=== PATIENT | female | born 1955 | race Caucasian/White ===

== ENCOUNTER 2020-10-14 09:00 | Emergency (ER) | payer BC, SELFPAY ==
[2020-10-14 09:17] VITALS: BP 122/77; PULSE 102; RESP 14; TEMP 37; O2SAT 98
--- NOTE | 2020-10-14 09:47 | ED.URI ---
HPI - URI/Sore Throat General Chief Complaint: Upper Respiratory Infection Stated Complaint: sore throat/cough/headache Source: patient Mode of arrival: ambulatory Limitations: no limitations History of Present Illness HPI Narrative: Patient is a 65-year-old female who presents complaining of cough, congestion, sore throat, headache and rhinorrhea times x5 days. Patient reports being seen in the ED for headache on Tuesday and was not tested for Covid. Patient had positive exposure to grandchild who is Covid positive. She denies chest pain or shortness of breath at this time. Actively coughing. She reports taking [id number] medications with limited relief. MD elicited complaint: cough, sore throat, rhinorrhea, nasal congestion and other (Headache) Related Data Home Medications Medication Instructions Recorded Confirmed amitriptyline 25 mg PO HS 10/14/20 10/14/20 buspirone 7.5 mg PO BID 10/14/20 10/14/20 celecoxib [Celebrex] 200 mg PO BID 10/14/20 10/14/20 cyclobenzaprine 10 mg PO HS 10/14/20 10/14/20 fluoxetine 40 mg PO DAILY 10/14/20 10/14/20 meclizine 25 mg PO TID 10/14/20 10/14/20 metoprolol succinate 25 mg PO DAILY 10/14/20 10/14/20 pantoprazole 40 mg PO DAILY 10/14/20 10/14/20 Allergies Allergy/AdvReac Type Severity Reaction Status Date / Time Sulfa (Sulfonamide Allergy Unknown Rash Verified 10/14/20 09:25 Antibiotics) codeine AdvReac Unknown Nausea Verified 10/14/20 09:25 gabapentin AdvReac Unknown Unknown Verified 10/14/20 09:25 Review of Systems Review of Systems: Narrative: CONSTITUTIONAL: Denies fever, chills, or sweats. EYES: Denies visual changes, redness, or discharge. ENT: Reports rhinorrhea, congestion, and sore throat CARDIOVASCULAR: Denies chest pain, palpitations, or edema. RESPIRATORY: Reports cough, denies dyspnea. GASTROINTESTINAL: Reports nausea and vomiting which has since resolved GENITOURINARY: Denies dysuria or hematuria. SKIN: Denies rash or itching. MUSCULOSKELETAL: Denies back pain, joint pain, or myalgia. NEUROLOGIC: Reports headache, denies numbness, dizziness, or weakness. PSYCHIATRIC: Denies anxiety or depression. [facility] Past Medical History Medical History Anxiety Arthritis Depression Fibromyalgia Fusion of spine, cervical region Migraines Plantar fasciitis Postmenopausal Surgical History Surgical History History of lumbar fusion Social History Social History (Updated 10/14/20 @ 09:53 by LILIAN Mckenzie) Smoking status: Never smoker Alcohol intake: never Substance use: never Living arrangements: with family Exam Narrative: Exam Narrative: GENERAL: Well-appearing, well-nourished, and in no acute distress. HEAD: Normocephalic, atraumatic. EYES Conjunctiva are normal. ENT: Mucous membranes pink and moist. Throat mild erythema Uvula midline. NECK: AROM. Supple. No lymphadenopathy. CHEST: No respiratory distress. HEART: Regular rate and rhythm. EXTREMITIES: Normal range of motion. SKIN: Warm, dry, no rash. NEURO: No focal deficits. Alert and oriented x3. Gait steady. PSYCH: Normal affect. No signs of depression or anxiety. Course Vital Signs Vital signs: Vital Signs Temperature 37.0 C 10/14/20 09:17 Pulse Rate 102 H 10/14/20 09:17 Respiratory Rate 14 10/14/20 09:17 Blood Pressure 122/77 10/14/20 09:17 Pulse Oximetry 98 10/14/20 09:17 Temperature 37.0 C 10/14/20 09:17 Pulse Rate 102 H 10/14/20 09:17 Respiratory Rate 14 10/14/20 09:17 Blood Pressure 122/77 10/14/20 09:17 Pulse Oximetry 98 10/14/20 09:17 Reviewed MDM - URI/Sore Throat MDM Narrative Medical decision making narrative: Patient is negative for strep throat and influenza. Discussed with patient Covid testing. Patient request Covid testing at this time. Discussed quarantine. Patient is stable for discharge to home with
[2020-10-14 09:50] VITALS: BP 126/82; PULSE 115; RESP 16; TEMP 36.8; O2SAT 100
== END 2020-10-14 10:08 | disposition home or self-care (01) ==
PROVIDERS: Emergency Provider Nurse Practitioner; PCP Family Medicine
DX: J06.9 Acute upper respiratory infection, unspecified (principal); Z20.828 Contact with and (suspected) exposure to other viral communicable diseases; M19.90 Unspecified osteoarthritis, unspecified site; M79.7 Fibromyalgia; F41.9 Anxiety disorder, unspecified; F32.9 Major depressive disorder, single episode, unspecified
CPT/HCPCS: 87081; 87804; 87880; 99213; G0463

== ENCOUNTER 2021-02-21 13:48 | Emergency (ER) | payer BC, MEDICARE, SELFPAY ==
[2021-02-21 14:24] VITALS: BP 113/86; PULSE 85; RESP 18; TEMP 36.2; O2SAT 96
--- NOTE | 2021-02-21 14:49 | ED.GENADULT ---
HPI - General Adult General Chief complaint: Urogenital-Female Stated complaint: bladder infection Time Seen by Provider: 02/21/21 14:49 Source: patient and RN notes reviewed Mode of arrival: ambulatory Limitations: no limitations History of Present Illness HPI narrative: 65-year-old female presents with urinary complaints for 1 day. Emmy reports increase urine symptoms throughout the night and day. Dysuria consist of warm, painful, and urgency. Increase water intake without relief. Denies frequency and burning with urination. Denies high fevers or sweats. No significant pelvic pain. No vaginal discharge.? No concerns for STDs. Exacerbating factors urinating.? Denies hematuria or vaginal bleeding. LMP postmenopause. No flank pain. Denies nausea, vomiting, and abdominal pain. Tolerating liquids. Remains active. The patient reports she was diagnosed with COVID-19 in September,, no current symptoms. The patient reports she is not waiting for the results of a COVID-19 lab test. The patient reports she do not have chills, weakness, or fatigue. The patient reports she do not have a new or worsening cough or shortness of breath. Denies chest pain. The patient reports she do not have any rhinorrhea, congestion, sore throat, loss of taste or smell, or diarrhea. Denies recent traveling. Denies concerns for COVID-19 or exposures been home with limited outdoor exposure except for essential household needs and return home. At this time, patient is not suspected of having COVID-19. Some parts of this dictation were generated by voice recognition software and may contain typographical and/or grammatical inaccuracies. Related Data Home Medications Medication Instructions Recorded Confirmed BuSpar 02/21/21 Stool Softner 02/21/21 amitriptyline 25 mg PO HS 02/21/21 02/21/21 celecoxib [Celebrex] 200 mg PO BID 02/21/21 02/21/21 meclizine 25 mg PO BID PRN 02/21/21 02/21/21 metoprolol tartrate 02/21/21 Allergies Allergy/AdvReac Type Severity Reaction Status Date / Time Sulfa (Sulfonamide Allergy Swelling Verified 02/21/21 14:25 Antibiotics) Review of Systems Review of Systems: Narrative: CONSTITUTIONAL: Denies fever, chills, sweats. EYES: Denies visual changes, redness, discharge. ENT: Denies rhinorrhea, congestion, sore throat, otalgia. CARDIOVASCULAR: Denies chest pain, palpitations, edema. RESPIRATORY: Denies dyspnea, wheezing, cough. GASTROINTESTINAL: Denies abdominal pain, nausea, vomiting, diarrhea. GENITOURINARY: Complains of dysuria (warm, painful, and urgency). Denies burning, frequency, hematuria, abnormal discharge. SKIN: Denies rash or itching. MUSCULOSKELETAL: Denies acute back pain, joint pain, or myalgia. NEUROLOGIC: Denies numbness or focal weakness. PSYCHIATRIC: Denies anxiety or depression. All systems reviewed & are unremarkable except as noted in HPI and below. COUNT INCLUDES [facility] Past Medical History Medical History (Updated 02/22/21 @ 00:00 by Georgette Mcnulty) Anxiety Back pain with history of spinal surgery Plantar fasciitis Post-menopause Rheumatoid arthritis Surgical History Surgical History (Updated 02/21/21 @ 15:05 by LILIAN Cedillo) History of cervical spinal surgery X6 History of foot surgery bilateral 2 times on each foot for plantar fasciitis History of spinal surgery X5 Family History Family History (Updated 02/21/21 @ 15:05 by LILIAN Cedillo) Father Unknown family medical history Mother Hypertension Social History Social History (Updated 02/28/21 @ 01:41 by LILIAN Cedillo) Smoking status: Never smoker Tobacco type: cigarettes Second hand tobacco smoke exposure: Yes (spouse) Alcohol intake: current Substance use: never Living arrangements: with family Occupation/Education: retired Gender identity (if verbalized by the patient): Female Sexual Orientation (if Verbalized by the Patient): Straight or Heterosexual
== END 2021-02-21 15:18 | disposition home or self-care (01) ==
PROVIDERS: Emergency Provider Nurse Practitioner Family; PCP Family Medicine
DX: R30.0 Dysuria (principal); R31.9 Hematuria, unspecified; F41.9 Anxiety disorder, unspecified; M06.9 Rheumatoid arthritis, unspecified
CPT/HCPCS: 81003; 87077; 87086; 87088; 87186; 99213; G0463

== ENCOUNTER 2021-11-24 12:18 | Emergency (ER) | payer MEDICARE, SELFPAY ==
[2021-11-24 12:24] VITALS: BP 125/68; PULSE 106; RESP 20; TEMP 36.6; O2SAT 97
--- NOTE | 2021-11-24 13:30 | ED.URI ---
HPI - URI/Sore Throat General Chief Complaint: Upper Respiratory Infection Stated Complaint: Body Aches/Cough/Sore Throat Time Seen by Provider: 11/24/21 13:20 Source: patient, RN notes reviewed and old records reviewed Mode of arrival: ambulatory Limitations: no limitations History of Present Illness HPI Narrative: 66 year old female who resents to express care with complaints of nasal drainage with congestion, sore throat and headache pain in frontal region with chills for the past 2 days. Patient states that she has been taking Zicam and Ibuprofen for her symptoms. Patient reports that she did have COVID in September of 2020 has not had COVID or flu vaccinations. Patient reports no body aches, loss of taste or smell or any feelings of chest tightness or shortness of breath. MD elicited complaint: cough, sore throat, rhinorrhea, nasal congestion and other (headache) Related Data Home Medications Medication Instructions Recorded Confirmed buspirone 7.5 mg PO BID 10/14/20 11/24/21 celecoxib [Celebrex] 200 mg PO BID 02/21/21 11/24/21 cyclobenzaprine 10 mg PO TID PRN 11/24/21 11/24/21 Allergies Allergy/AdvReac Type Severity Reaction Status Date / Time Sulfa (Sulfonamide Allergy Unknown Rash Verified 11/24/21 12:38 Antibiotics) codeine AdvReac Unknown Nausea Verified 11/24/21 12:38 gabapentin AdvReac Unknown Unknown Verified 11/24/21 12:38 Review of Systems Review of Systems: CONSTITUTIONAL: No known fever, positive for chills, or sweats. EYES: Denies visual changes, redness, or discharge. ENT: positive for rhinorrhea, congestion, sore throat, no otalgia. CARDIOVASCULAR: Denies chest pain, palpitations, or edema. RESPIRATORY: Positive for cough denies dyspnea. GASTROINTESTINAL: Denies abdominal pain, nausea, vomiting, or diarrhea. GENITOURINARY: Denies dysuria or hematuria. SKIN: Denies rash or itching. MUSCULOSKELETAL: Chronic back and neck pain, joint pain,no body aches NEUROLOGIC: Positive for frontal headache,no numbness, or weakness. PSYCHIATRIC: Positive for history of anxiety or depression. All systems reviewed & are unremarkable except as noted in HPI and below PMFSH Past Medical History Medical History Anxiety Anxiety Arthritis Back pain with history of spinal surgery Depression Fibromyalgia Fusion of spine, cervical region Migraines Plantar fasciitis Plantar fasciitis Post-menopause Postmenopausal Rheumatoid arthritis Surgical History Surgical History History of cervical spinal surgery X6 History of foot surgery bilateral 2 times on each foot for plantar fasciitis History of lumbar fusion History of spinal surgery X5 Family History Family History Father Unknown family medical history Mother Hypertension Social History Social History Smoking status: Never smoker Tobacco type: cigarettes Second hand tobacco smoke exposure: Yes (spouse) Alcohol intake: current Substance use: never Gender identity (if verbalized by the patient): Female Sexual Orientation (if Verbalized by the Patient): Straight or Heterosexual Comments At time of signature, agree with nursing past medical, surgical, social and family history. There is no relevant family history pertinent to the presenting complaint Exam Narrative: GENERAL: Well-appearing, well-nourished, and in no acute distress. HEAD: Normocephalic, atraumatic. EYES: PERRLA and EOMI. ENT: Nares red with clear rhinorrhea no epistaxis. Mucous membranes moist.TM's normal with dull light reflex, throat red and painful with no lesions or tonsil enlargement,post nasal drainage present. NECK: Supple.no lymphadenopathy CHEST: Clear to auscultation. No respiratory distress.no tachypnea or accessory muscle use, SAO2 97% on room air
== END 2021-11-24 14:10 | disposition home or self-care (01) ==
PROVIDERS: Emergency Provider Registered Nurse; PCP Family Medicine
DX: J06.9 Acute upper respiratory infection, unspecified (principal); M79.7 Fibromyalgia; M06.9 Rheumatoid arthritis, unspecified; M19.90 Unspecified osteoarthritis, unspecified site; F41.9 Anxiety disorder, unspecified; F32.A Depression, unspecified
CPT/HCPCS: 87081; 87804; 87880; 99213; G0463

== ENCOUNTER 2024-03-06 12:44 | Emergency (ER) | payer MEDICARE, SELFPAY ==
[2024-03-06 13:01] VITALS: BP 129/81; PULSE 86; RESP 18; TEMP 36.2; O2SAT 96
[2024-03-06 13:02] VITALS: BP 129/81; PULSE 86; RESP 18; TEMP 36.2; O2SAT 96
--- NOTE | 2024-03-06 14:36 | ED.GENADULT ---
HPI - General Adult General Chief complaint: Urogenital-Female Stated complaint: Poss UTI Source: patient Mode of arrival: ambulatory Limitations: no limitations History of Present Illness HPI narrative: Pt presents for evaluation of urinary symptoms for the past six days. Symptoms include urinary urgency, frequency, hesitancy, vaginal pressure and hematuria. No fever, chills, nausea, vomiting, abdominal pain, low back/flank pain, or vaginal bleeding/discharge. She has never had a kidney stone. She takes celebrex regularly. Related Data Home Medications Medication Instructions Recorded Confirmed celecoxib 200 mg capsule (Celebrex) 200 mg PO BID 02/21/21 03/06/24 cyclobenzaprine 10 mg tablet 10 mg PO TID PRN Muscle Spasm 11/24/21 03/06/24 amitriptyline 25 mg tablet 25 mg PO QHS 03/06/24 03/06/24 metoprolol succinate 25 mg 25 mg PO DAILY 03/06/24 03/06/24 tablet,extended release 24 hr pantoprazole 40 mg tablet,delayed 40 mg PO DAILY 03/06/24 03/06/24 release Allergies Allergy/AdvReac Type Severity Reaction Status Date / Time Sulfa (Sulfonamide Allergy Unknown Rash Verified 03/06/24 13:02 Antibiotics) codeine AdvReac Unknown Nausea Verified 03/06/24 13:02 gabapentin AdvReac Unknown Unknown Verified 03/06/24 13:02 Review of Systems Review of Systems: CONSTITUTIONAL: Denies fever, chills, or sweats. EYES: Denies visual changes, redness, or discharge. ENT: Denies rhinorrhea, congestion, sore throat, or otalgia. CARDIOVASCULAR: Denies chest pain, palpitations, or edema. RESPIRATORY: Denies cough or dyspnea. GASTROINTESTINAL: Denies abdominal pain, nausea, vomiting, or diarrhea. GENITOURINARY: Reports urinary frequency, urgency, hesitancy, pressure in vaginal area and hematuria. Denies dysuria and vaginal bleeding/discharge. SKIN: Denies rash or itching. MUSCULOSKELETAL: Denies back pain, joint pain, or myalgia. NEUROLOGIC: Denies headache, numbness, dizziness, or weakness. PSYCHIATRIC: Denies anxiety or depression. [facility] Past Medical History Medical History Anxiety Anxiety Arthritis Back pain with history of spinal surgery Depression Fibromyalgia Fusion of spine, cervical region Migraines Plantar fasciitis Plantar fasciitis Post-menopause Postmenopausal Rheumatoid arthritis Surgical History Surgical History History of cervical spinal surgery X6 History of foot surgery bilateral 2 times on each foot for plantar fasciitis History of lumbar fusion History of spinal surgery X5 Family History Family History Father Unknown family medical history Mother Hypertension Social History Social History Smoking status: Never smoker Tobacco type: cigarettes Second hand tobacco smoke exposure: Yes (spouse) Alcohol intake: current Substance use: never Living arrangements: with family Occupation/Education: retired Gender identity (if verbalized by the patient): Female Sexual Orientation (if Verbalized by the Patient): Straight or Heterosexual Course Course Emergency Course: This is a 68-year-old female who presented for evaluation of urinary symptoms. She has no flank pain or abdominal pain to suggest kidney stone however pressure in vaginal area may be consistent with stone. She has 1+leukocytes in urine today. Will send urine for culture. Start keflex. Advised she switch from celebrex to topical diclofenac for now due to hematuria. She should increase hydration. Follow up with primary provider. In the event that she has worsening symptoms she should go to the emergency department. Patient in agreement with plan care. Level of Care: Express Care Visit Vital Signs Vital signs: Vital Signs Temperature 36.2 C L 03/06/24 13:01 Pulse Rate 86
== END 2024-03-06 13:45 | disposition home or self-care (01) ==
PROVIDERS: Emergency Provider Nurse Practitioner; PCP Physician Assistant
DX: N39.0 Urinary tract infection, site not specified (principal); M06.9 Rheumatoid arthritis, unspecified; F32.A Depression, unspecified
CPT/HCPCS: 81003; 87086; 99213; G0463

== ENCOUNTER 2024-06-27 08:27 | Emergency (ER) | payer MEDICARE, SELFPAY ==
[2024-06-27 08:32] VITALS: BP 131/78; PULSE 78; RESP 16; TEMP 36.6; O2SAT 97
--- NOTE | 2024-06-27 08:38 | ED.URI ---
HPI - URI/Sore Throat General Chief Complaint: Upper Respiratory Infection Stated Complaint: throat/ears/drainage/cough Time Seen by Provider: 06/27/24 08:39 Source: patient and RN notes reviewed Mode of arrival: ambulatory Limitations: no limitations History of Present Illness HPI Narrative: 69-year-old female presented for complaint of sinus congestion and postnasal drainage, cough, ear pressure a over the past 2 weeks. States that the onset she decreased taste and smell and may have had COVID but she did not test. She took 1 dose of a decongestant yesterday without improvement so she was wanting evaluation today. She denies shortness of breath, wheezing,vomiting, diarrhea, fevers or chills. MD elicited complaint: cough Related Data Home Medications Medication Instructions Recorded Confirmed celecoxib 200 mg capsule (Celebrex) 200 mg PO BID 02/21/21 03/06/24 cyclobenzaprine 10 mg tablet 10 mg PO TID PRN Muscle Spasm 11/24/21 03/06/24 amitriptyline 25 mg tablet 25 mg PO QHS 03/06/24 03/06/24 metoprolol succinate 25 mg 25 mg PO DAILY 03/06/24 03/06/24 tablet,extended release 24 hr pantoprazole 40 mg tablet,delayed 40 mg PO DAILY 03/06/24 03/06/24 release Allergies Allergy/AdvReac Type Severity Reaction Status Date / Time Sulfa (Sulfonamide Allergy Unknown Rash Verified 03/06/24 13:02 Antibiotics) codeine AdvReac Unknown Nausea Verified 03/06/24 13:02 gabapentin AdvReac Unknown Unknown Verified 03/06/24 13:02 Review of Systems Review of Systems: CONSTITUTIONAL: denies malaise, chills, sweats, fever EYES: Denies visual changes, redness, or discharge ENT: Reports rhinorrhea, congestion, sinus pain, otalgia, sore throat CARDIOVASCULAR: Denies chest pain, palpitations, edema RESPIRATORY: Reports cough, post nasal drainage. Denies dyspnea GASTROINTESTINAL: Denies abdominal pain, nausea, vomiting, diarrhea SKIN: Denies rash or itching MUSCULOSKELETAL: denies myalgia NEUROLOGIC: Denies headache PMFSH Past Medical History Medical History Anxiety Anxiety Arthritis Back pain with history of spinal surgery Depression Fibromyalgia Fusion of spine, cervical region Migraines Plantar fasciitis Plantar fasciitis Post-menopause Postmenopausal Rheumatoid arthritis Surgical History Surgical History History of cervical spinal surgery X6 History of foot surgery bilateral 2 times on each foot for plantar fasciitis History of lumbar fusion History of spinal surgery X5 Family History Family History Father Unknown family medical history Mother Hypertension Social History Social History Smoking status: Never smoker Tobacco type: cigarettes Second hand tobacco smoke exposure: Yes (spouse) Alcohol intake: current Substance use: never Living arrangements: with family Occupation/Education: retired Gender identity (if verbalized by the patient): Female Sexual Orientation (if Verbalized by the Patient): Straight or Heterosexual Exam Narrative: GENERAL: mildly Ill-appearing, nontoxic no acute distress. EYES: PERRLA, conjunctivae clear ENT: Mucous membranes moist. nasal congestion. TM pearly ford with dull light reflex bilaterally , mild left clear effusion; no tragal tenderness. Oropharynx erythematous without lesions or exudate, no drooling, no hoarseness, no trismus, uvula midline. No tripod positioning, muffled voice, soft palate or pharyngeal wall bulging NECK: Supple. No lymphadenopathy CHEST: Clear to auscultation, breath sounds equal. No wheezing, rhonchi, rales, or stridor. No respiratory distress, speaks in full sentences. HEART: Regular rate and rhythm. No murmur heard. SKIN: Warm, dry, no rash. NEURO: Alert and oriented x3. PSYCH: Normal mood and affec
== END 2024-06-27 08:58 | disposition home or self-care (01) ==
PROVIDERS: Emergency Provider Nurse Practitioner Family; PCP Physician Assistant
DX: J32.9 Chronic sinusitis, unspecified (principal); M19.90 Unspecified osteoarthritis, unspecified site; M06.9 Rheumatoid arthritis, unspecified; F32.A Depression, unspecified
CPT/HCPCS: 99213; G0463

== ENCOUNTER 2024-07-31 10:30 | Emergency (ER) | payer MEDICARE, SELFPAY ==
[2024-07-31 10:42] VITALS: BP 129/78; PULSE 71; RESP 20; TEMP 37.1; O2SAT 98
--- NOTE | 2024-07-31 11:25 | ED.SKABFB ---
HPI - Skin/Abscess/Foreign Bdy General Chief complaint: Skin/Abscess/Foreign Body Stated complaint: rash under breasts Time Seen by Provider: 07/31/24 11:25 Source: patient, RN notes reviewed and old records reviewed Mode of arrival: ambulatory Limitations: no limitations History of Present Illness HPI narrative: 69-year-old female presents to the [facility] with a rash under her breasts. Patient recently on antibiotics. Had tried using Desitin and Vagisil Excoriated skin Onset (ago): week(s) (2-3 weeks) Treatments prior to arrival: other (Desitin) Related Data Home Medications Medication Instructions Recorded Confirmed amitriptyline 25 mg tablet 25 mg PO QHS 03/06/24 07/31/24 metoprolol succinate 25 mg 25 mg PO DAILY 03/06/24 07/31/24 tablet,extended release 24 hr pantoprazole 40 mg tablet,delayed 40 mg PO DAILY 03/06/24 07/31/24 release Allergies Allergy/AdvReac Type Severity Reaction Status Date / Time Sulfa (Sulfonamide Allergy Unknown Rash Verified 07/31/24 10:46 Antibiotics) codeine AdvReac Unknown Nausea Verified 07/31/24 10:46 gabapentin AdvReac Unknown Unknown Verified 07/31/24 10:46 Review of Systems Review of Systems: All systems reviewed & are unremarkable except as noted in HPI and below Constitutional: Constitutional: Reports no additional constitutional complaints Eyes: Eyes: Reports no additional eye complaints ENT: Reports system reviewed and no additional complaints, except as documented Cardiovascular: Cardiovascular: Reports no additional cardiovascular complaints, Denies chest pain and Denies dyspnea Respiratory: Respiratory: Reports no additional respiratory complaints, Denies chest congestion, Denies cough and Denies dyspnea Gastrointestinal: Gastrointestinal: Reports no additional gastrointestinal complaints, Denies abdominal pain, Denies nausea and Denies vomiting Musculoskeletal: Musculoskeletal: Reports no additional musculoskeletal complaints Integumentary/Breasts: Skin/Breast: Reports as per HPI and Reports rash (Under bilateral breasts) Neurologic: Reports system reviewed and no additional complaints, except as documented Psychiatric: Psychiatric: Reports no additional psychiatric complaints Allergic/Immunologic: Allergic/Immunologic: Reports no additional allergic/immunologic complaints PMFSH Past Medical History Medical History Anxiety Anxiety Arthritis Back pain with history of spinal surgery Depression Fibromyalgia Fusion of spine, cervical region Migraines Plantar fasciitis Plantar fasciitis Post-menopause Postmenopausal Rheumatoid arthritis Surgical History Surgical History History of cervical spinal surgery X6 History of foot surgery bilateral 2 times on each foot for plantar fasciitis History of lumbar fusion History of spinal surgery X5 Family History Family History Father Unknown family medical history Mother Hypertension Social History Social History Smoking status: Never smoker Tobacco type: cigarettes Second hand tobacco smoke exposure: Yes (spouse) Alcohol intake: current Substance use: never Living arrangements: with family Occupation/Education: retired Gender identity (if verbalized by the patient): Female Sexual Orientation (if Verbalized by the Patient): Straight or Heterosexual Comments At the time of my signature, I reviewed and agree with the nursing past medical, surgical, social, and family history. There is no relevant family history pertinent to the patient complaint. Exam Const: General: cooperative, healthy appearing, comfortable, no acute distress, well developed, alert and well nourished Nutritional Appearance: well nourished Orientation/consciousness: patient oriented x3
== END 2024-07-31 11:35 | disposition home or self-care (01) ==
PROVIDERS: Emergency Provider Nurse Practitioner; PCP Physician Assistant
DX: B37.2 Candidiasis of skin and nail (principal); M79.7 Fibromyalgia; M06.9 Rheumatoid arthritis, unspecified; M19.90 Unspecified osteoarthritis, unspecified site
CPT/HCPCS: 99213; G0463

== ENCOUNTER 2024-09-28 16:23 | Emergency (ER) | payer MEDICARE, SELFPAY ==
[2024-09-28 16:32] VITALS: BP 121/94; PULSE 96; RESP 20; TEMP 36.6; O2SAT 97
--- NOTE | 2024-09-28 16:41 | ED.FEMALEGU ---
HPI - Female Genitourinary General Chief complaint: Urogenital-Female Stated complaint: Urinary Problem Time Seen by Provider: 09/28/24 16:41 Source: patient and RN notes reviewed Mode of arrival: ambulatory Limitations: no limitations History of Present Illness HPI Narrative: 69-year-old female with concern for urine frequency, urgency, dysuria. She reports she urinates very small amounts frequently. Reports his symptoms have been going for many months. She reports she was treated with antibiotic in February that helped briefly. She reports suprapubic pressure and some incontinence. She denies fever, body aches, chills MD elicited complaint: UTI Related Data Home Medications Medication Instructions Recorded Confirmed amitriptyline 25 mg tablet 25 mg PO QHS 03/06/24 09/28/24 buspirone 15 mg tablet 15 mg PO TID 09/28/24 09/28/24 celecoxib 200 mg capsule 200 mg PO BID 09/28/24 09/28/24 cyclobenzaprine 10 mg tablet 10 mg PO QHS 09/28/24 09/28/24 Allergies Allergy/AdvReac Type Severity Reaction Status Date / Time Sulfa (Sulfonamide Allergy Unknown Rash Verified 09/28/24 16:47 Antibiotics) codeine AdvReac Unknown Nausea Verified 09/28/24 16:47 gabapentin AdvReac Unknown Unknown Verified 09/28/24 16:47 Review of Systems Review of Systems: CONSTITUTIONAL: Denies malaise, chills, sweats, or fever. CARDIOVASCULAR: Denies chest pain, palpitations, or edema. RESPIRATORY: Denies cough or dyspnea. GASTROINTESTINAL: Denies abdominal pain, nausea, vomiting, diarrhea GENITOURINARY: Reports dysuria, frequency, urgency, suprapubic pressure. Denies flank pain or hematuria. SKIN: Denies rash or itching. MUSCULOSKELETAL: Denies back pain or myalgia. All systems reviewed & are unremarkable except as noted in HPI and below PMFSH Past Medical History Medical History Anxiety Anxiety Arthritis Back pain with history of spinal surgery Depression Fibromyalgia Fusion of spine, cervical region Migraines Plantar fasciitis Plantar fasciitis Post-menopause Postmenopausal Rheumatoid arthritis Surgical History Surgical History History of cervical spinal surgery X6 History of foot surgery bilateral 2 times on each foot for plantar fasciitis History of lumbar fusion History of spinal surgery X5 Family History Family History Father Unknown family medical history Mother Hypertension Social History Social History Smoking status: Never smoker Tobacco type: cigarettes Second hand tobacco smoke exposure: Yes (spouse) Alcohol intake: current Substance use: never Living arrangements: with family Occupation/Education: retired Gender identity (if verbalized by the patient): Female Sexual Orientation (if Verbalized by the Patient): Straight or Heterosexual Comments At time of signature, agree with nursing past medical, surgical, social and family history. There is no relevant family history pertinent to the presenting complaint Exam Narrative: GENERAL: Well-appearing, well-nourished, and in no acute distress. HEAD: Normocephalic. EYES: PERRLA, conjunctivae clear. NECK: Supple. No lymphadenopathy CHEST: Clear to auscultation. No respiratory distress. HEART: Regular rate and rhythm. SKIN: Warm, dry, no rash. NEURO: Alert and oriented x3. PSYCH: Normal mood and affect Course Course Emergency Course: Patient is aware of diagnosis, understands and agrees to treatment plan. Anticipatory guidance given. Patient agrees to follow-up as directed and is aware of reasons to seek care at the emergency department. Portions of this record may have been created with voice recognition software Level of Care: Express Care Visit Vital Signs Vital signs: Vital Signs Temperature 97.9 F 09/28/24 16:32 Pulse Rate 96 09/28/24 16:32 Respiratory Rate 20 09/28/24 16:32 Blood Pressure 121/94 H 09/28/24 16:32 Pulse Oximetry 97 09/28/24 16:32 Oxygen Delivery Room Air 09/28/24 16:32 Temperature 97.9 F 09/28/24 16:32 Pulse Rate 96 09/28/24 16:32 Respiratory Rate 20 09/28/24 16:32 Blood Pressure 121/94 H 09/28/24 16:32 Pulse Oximetry 97 09/28/24 16:32 Oxygen Delivery Room Air 09/28/24 16:32 Reviewed. MDM - Female Genitourinary MDM Narrative Medical decision making narrative: Exam findings and UA show no acute concerns or changes; patient is non-toxic appearing and is in no distress. Patient is appropriate for outpatient treatment and follow-up. Differential Diagnosis Differential diagnosis: Likely urinary tract infection and cystitis Critical Care Time Critical Care Time Critical Care Time: No Discharge Plan Discharge Clinical Impression: Dysuria Patient Disposition: Home, Self-Care Condition: Stable Instructions: Antibiotic Form, Dysuria (ED) Additional Instructions: We will send a urine culture to the lab; if the culture identifies an organism that the prescribed antibiotic will not treat, you will receive a phone call from an urgent care staff member and an appropriate antibiotic will be prescribed. -if Your symptoms are caused by UTI they should begin to improve within a day of starting antibiotics. If there are caused by something else, the antibiotic will not help. Please follow-up with urology for further evaluation of your symptoms -Also recommend: increase water intake. Tylenol/ibuprofen as needed for pain or fever -Seek ER visit if condition worsens with high fever, nausea, vomiting and severe back pain. Prescriptions: New ciprofloxacin HCl 500 mg tablet 500 mg PO Q12H 5 Days Qty: 10 0RF No Action buspirone 15 mg tablet 15 mg PO TID cyclobenzaprine 10 mg tablet 10 mg PO QHS celecoxib 200 mg capsule 200 mg PO BID amitriptyline 25 mg tablet 25 mg PO QHS Follow-up/Referrals: Rory Rodriguez MD [Physician] - Carmelo,SANDY Aguilar [Primary Care Provider] - Time of Disposition: 16:58
[2024-09-28 16:46] LABS: EDUAAPPEAR Clear; EDUABILI Negative (Negative); EDUABLOOD Negative (Negative); EDUACOLOR1 Yellow; EDUAGLUCOSE Negative (Negative); EDUAKETONE Negative (Negative); EDUALEUKO Trace (Negative); EDUANITRATE Negative (Negative); EDUAPH 5.5; EDUAPROTEIN 1+ (Negative); EDUAUROBILI 0.2
== END 2024-09-28 17:05 | disposition home or self-care (01) ==
PROVIDERS: Emergency Provider Nurse Practitioner; PCP Physician Assistant
DX: R30.0 Dysuria (principal); M19.90 Unspecified osteoarthritis, unspecified site; M79.7 Fibromyalgia; M06.9 Rheumatoid arthritis, unspecified; F41.9 Anxiety disorder, unspecified; F32.A Depression, unspecified
CPT/HCPCS: 81003; 87077; 87086; 87186; 99213; G0463

== ENCOUNTER 2025-02-21 16:15 | Emergency (ER) | payer MEDICARE, SELFPAY ==
[2025-02-21 16:24] VITALS: BP 114/83; PULSE 78; RESP 20; TEMP 36.8; O2SAT 98
--- NOTE | 2025-02-21 16:26 | ED.FEMALEGU ---
HPI - Female Genitourinary General Chief complaint: Urogenital-Female Stated complaint: Poss UTI Time Seen by Provider: 02/21/25 16:28 Source: patient, RN notes reviewed and old records reviewed Mode of arrival: ambulatory Limitations: no limitations History of Present Illness HPI Narrative: 69 year old female who presents to [facility] care with complaints of some UTI symptoms for the past 2 weeks with symptoms getting a little better then today, increased symptoms noted. Patient reports that for the past 2 years she has had frequent urinary tract infections, states she feel like it never really goes completely away. Patient admits that she does not drink enough water during the day at work. Patient has taken some AZO, Excedrin and has drank cranberry juice for her symptoms. reports no recent AZO. Patient reports that she has some suprapubic pressure and burning with frequency and urgency.Patient reports no vaginal discharge or any concern for STI exposure. MD elicited complaint: UTI Pertinent past history: recurrent UTIs Onset (ago): week(s) (2weeks with increase symptoms today.) Location of symptoms: suprapubic and urethra Severity scale (1-10): 6 Quality of pain: burning and aching Vaginal discharge: none Vaginal bleeding: none Urinary symptoms: Dysuria, Urgency and Frequency Treatment prior to arrival: OTC urinary analgesics and other (Excedrin, AZO, cranberry juice) Related Data Home Medications ?Medication ?Instructions ?Recorded ?Confirmed ?Last Taken ?Type celecoxib 200 mg capsule 200 mg PO BID 09/28/24 09/28/24 Unknown History cyclobenzaprine 10 mg tablet 10 mg PO QHS 09/28/24 09/28/24 Unknown History metoprolol succinate 25 mg mg PO 02/21/25 Unknown History tablet,extended release 24 hr ondansetron HCl 4 mg tablet mg 02/21/25 Unknown History pantoprazole 40 mg tablet,delayed mg PO 02/21/25 Unknown History release Allergies Allergy/AdvReac Type Severity Reaction Status Date / Time Sulfa (Sulfonamide Allergy Unknown Rash Verified 02/21/25 16:23 Antibiotics) codeine AdvReac Unknown Nausea Verified 02/21/25 16:23 gabapentin AdvReac Unknown Unknown Verified 02/21/25 16:23 Review of Systems Review of Systems: CONSTITUTIONAL: Denies fever, chills, or sweats. CARDIOVASCULAR: Denies chest pain, palpitations, or edema. RESPIRATORY: Denies cough or dyspnea. GASTROINTESTINAL: reports suprapubic abdominal pressure, no nausea, vomiting, or diarrhea. GENITOURINARY: Reports dysuria, frequency, urgency. Denies flank pain or hematuria. SKIN: Denies rash or itching. MUSCULOSKELETAL: Denies back pain or myalgia. Denies CVA tenderness NEUROLOGIC: Denies headache All systems reviewed & are unremarkable except as noted in HPI and below PMFSH Past Medical History Medical History UTI (urinary tract infection) Post-menopause Plantar fasciitis Back pain with history of spinal surgery Anxiety Rheumatoid arthritis Anxiety Depression Fusion of spine, cervical region Arthritis Fibromyalgia Plantar fasciitis Postmenopausal Migraines Surgical History Surgical History History of foot surgery bilateral 2 times on each foot for plantar fasciitis History of cervical spinal surgery X6 History of spinal surgery X5 History of lumbar fusion Family History Family History Father Unknown family medical history Mother Hypertension Social History Social History Smoking status: Never smoker Tobacco type: cigarettes Second hand tobacco smoke exposure: Yes (spouse) Alcohol intake: current Substance use: never Living arrangements: with family Occupation/Education: retired Gender identity (if verbalized by the patient): Female Sexual Orientation (if Verbalized by the Patient): Straight or Heterosexual Comments At time of signature, agree with nursing past medical, surgical, social and family history. There is no relevant family history pertinent to the presenting complaint Exam Narrative: GENERAL: Well-appearing, well-nourished, and in no acute distress. HEAD: Normocephalic, atraumatic. NECK: Supple. no lymphadenopathy CHEST: Clear to auscultation. No respiratory distress.SAO2 98% on room air HEART: Regular rate and rhythm. No murmur heard. Normal peripheral pulses. ABDOMEN: Soft, nontender to palpation, reports some suprapubic pressure,, nondistended, normal active bowel sounds. No CVA tenderness, reports urinary burning, frequency and urgency EXTREMITIES: Normal range of motion. No edema. SKIN: Warm, dry, no rash. NEURO: No focal deficits. Alert and oriented x3. Course Course Emergency Course: Patient is aware of diagnosis, understands and agrees to treatment plan.? Anticipatory guidance given.? Patient agrees to follow-up as directed and is aware of reasons to seek care at the emergency department. Portions of this record may have been created with voice recognition software Level of Care: Express Care Visit Vital Signs Vital signs: Vital Signs Temperature 36.8 C 02/21/25 16:24 Pulse Rate 78 02/21/25 16:24 Respiratory Rate 20 02/21/25 16:24 Blood Pressure 114/83 02/21/25 16:24 Pulse Oximetry 98 02/21/25 16:24 Oxygen Delivery Room Air 02/21/25 16:24 Temperature 36.8 C 02/21/25 16:24 Pulse Rate 78 02/21/25 16:24 Respiratory Rate 20 02/21/25 16:24 Blood Pressure 114/83 02/21/25 16:24 Pulse Oximetry 98 02/21/25 16:24 Oxygen Delivery Room Air 02/21/25 16:24 reviewed MDM - Female Genitourinary MDM Narrative Medical decision making narrative: Exam findings and UA show no acute concerns or changes; patient is non-toxic appearing and is in no distress.? Patient is appropriate for outpatient treatment and follow-up. Differential Diagnosis Differential diagnosis: Likely urinary tract infection, cystitis and other (dysuria) Medical Records Attestation: I reviewed the patient's medical records. Lab Data Attestation: I reviewed the patient's lab results. Lab results narrative: urine dip reviewed see report Labs: Lab Results 02/21/25 Range/Units 16:27 POC Urine Color Yellow POC Urine Clarity Clear POC Urine pH 5.5 POC Ur Specif [place] 1.030 POC Urine Protein Negative (Negative) POC Ur Glucose (UA) Negative (Negative) POC Urine Ketones 2+ (Negative) POC Urine Blood Negative (Negative) POC Urine Nitrite Negative (Negative) POC Urine Bilirubin 1+ (Negative) POC Urine Urobilinogen 1.0 POC U Leukocyte Esteras Trace (Negative) reviewed Critical Care Time Critical Care Time Critical Care Time: No Discharge Plan Discharge Clinical Impression: Urinary tract infection Qualifiers: Urinary tract infection type: site unspecified Hematuria presence: without hematuria Qualified Code(s): N39.0 - Urinary tract infection, site not specified Patient Disposition: Home, Self-Care Condition: Stable Instructions: Antibiotic Form, Urinary Tract Infection in Women (ED) Additional Instructions: Increase fluids especially cranberry juice and water Avoid caffeine and carbonated beverages Antibiotic as directed Tylenol/ibuprofen for pain or fever Follow-up with her primary care provider if further problems or concerns Recheck if you have fever over 101, nausea and vomiting. Follow-up with PCP you after completion of oral antibiotic possible referral to Urology If your symptoms persist, change or worsen significantly before you can contact your personal physician then please, without delay, go to the emergency department for further evaluation. Follow-up with PCP in 7-10 days or sooner if needed Patient Language: Stateless Prescriptions: New ciprofloxacin HCl 500 mg tablet 500 mg PO Q12H Qty: 14 0RF No Action cyclobenzaprine 10 mg tablet 10 mg PO QHS celecoxib 200 mg capsule 200 mg PO BID ondansetron HCl 4 mg tablet pantoprazole 40 mg tablet,delayed release (DR/EC) PO metoprolol succinate 25 mg tablet extended release 24 hr PO Follow-up/Referrals: Carmelo,SANDY Aguilar [Primary Care Provider] - Time of Disposition: 17:08 Quality [place] Coma Scale Eyes: Open Verbal: Oriented and Alert Motor: Follows Commands Terry Coma Total Score: 15
--- OUTSIDE RECORDS SUMMARY | 2025-02-21 16:31 | XMS_ITS | Clinical Summary ---
Author Organization [facility] Address [address] [facility], [address] [address] Phone Care Team Providers Care Log Marker Name Role Phone Bekah Rhodescarolee RODRIGUEZ Primary Care Provider + Allergies Active Allergy Reactions Criticality Noted Date Comments Codeine Vomiting 12/24/2015 Gabapentin Other (see Comments) 01/05/2018 Could not walk, AND EXTREME PAIN Hydrocodone Other (see Comments) 12/28/2018 HEADACHES Sulfa Antibiotics Swelling 12/24/2015 Sulfasalazine Swelling Medium 12/24/2015 Medications Imitrex STATdose Refill 6 MG/0.5ML Solution CartridgeIndic ations:Migrain e with aura and without status migrainosus, not intractable INJECT 1 SYRINGE SUBCUTANEOUSLY NEEDED, MAX 2 IN 24 HOURS 1 mL 2 023 Active acetaminophen- caffeine (Excedrin Tension Headache) 500-65 MG Tablet Take 1 Tablet by mouth every 4 hours as needed. Active busPIRone (BUSPAR) 15 MG TabletIndicati ons:Anxiety TAKE 1 TABLET BY MOUTH THREE TIMES DAILY 270 Tablet 024 Active Cholecalcifero l (VITAMIN D-3 PO) Take by mouth. Activ e pantoprazole (PROTONIX) 40 MG Tablet Delayed Response Take 1 tablet by mouth once daily 90 Tablet 2 Active metoprolol Succinate (TOPROL-XL) 25 MG TABLET SR 24 HRIndications: Hypertension, unspecified type Take 1 tablet by mouth once daily 90 Tablet 2 Active amitriptyline (ELAVIL) 25 MG TabletIndicati ons:Insomnia, unspecified type Take 1 tablet by mouth nightly 90 Tablet 1 Active Additional Information Patient not taking.Reported on 02/21/2025 albuterol 108 (90 Base) MCG/ACT Aerosol Solution take 2 Puffs by inhalation every 4 hours as needed (shortness of breath). 18 g Active ondansetron (ZOFRAN) 4 MG Tablet Take 1 Tablet by mouth 3 times daily as needed for Nausea - 1st line. 30 Tablet 1 Active celecoxib (CeleBREX) 200 MG Capsule Take 1 capsule by mouth twice daily 180 Capsule Active cyclobenzaprin e (FLEXERIL) 10 MG Tablet Take 1 tablet by mouth nightly 90 Tablet Active celecoxib (CeleBREX) 200 MG Capsule Take 1 capsule by mouth twice daily 180 Capsule 024 2024 Discontinued cyclobenzaprin e (FLEXERIL) 10 MG Tablet Take 1 Tablet by mouth nightly. 90 Tablet 024 2024 Discontinued Active Problems Problem Noted Date Diagnosed Date Encounter for follow-up surveillance of colon ca ncer 05/09/2024 S/P TKR (total knee replacement) using cement, r ight 01/05/2019 Osteoarthritis of right knee 01/02/2019 Acute respiratory failure with hypoxia 9 Anxiety and depression 10/06/2017 Seronegative rheumatoid arthritis 08/31/2016 Pseudogout of knee 01/12/2016 Migraine with aura and witho ut status migrainosus, not intractable 01/12/2016 Encounters Date Type Department Care Team Description 02/21/2025 Nurse Triage [facility] [address] [place] [address] Sunshine Rhodes, PAC Advice Only; Urinary Pain 02/15/2025 Refill [facility] [address] [place] [address] Sunshine Rhodes, JENNIFER Medication Refill 11/30/2024 11:00 AM CHILD LIFE THERAPIST Office Visit [facility] - Neurology - [place] [address] [place] [address] Zelalem Chaudhari MD Memory changes (Primary Dx); Paresthesia of both feet Discharge Disposition: Discharged to home or Selfcare 11/30/2024 Travel from Last 3 Months Immunizations Immunization Administration Dates Next Due Influenza Vaccine greater than 3 yrs 09/13/2019, 08/28/2016 Influenza Vaccine, Quadrivalent, PF 01/2022,09/13/2019,10/06/2017,01/12 Influenza, Seasonal, Injecta ble, Undefined 09/13/2019,08/28/2016 Influenza, Trivalent, Adjuvanted, PF 08/30/2024 PUR FLU 3+ YRS PRES FREE QUAD IM 01/12/2016 Pneumococcal Vaccine Adult - 23 Valent 9 Pneumococcal conjugate PCV20 , polysaccharide [id number] conjugate, adjuvant, PF 08/08/2024,08/30/2022 Zoster Vaccine Recombinant 08/08/2024,06/04/2024 Family History Medical History Relation Name Comments Breast Cancer Maternal Aunt Cancer Maternal Aunt Osteoarthritis Mother Relation Name Status Comments Father Alive Maternal Aunt Mother Alive Social History Tobacco Use Types Packs/Day Years Used Date Smoking Tobacco: Never Smokeless Tobacco: Never Tobacco Cessation:Counseling Given: Not Answered Alcohol Use Standard Drinks/Week Comments No 0 (1 standard drink = 0.6 oz pur e alcohol) PHQ-2 Answer Date Recorded Total Score - Questions 1-9 0 12/30 Comments No Sex and Gender Information Value Date Recorded Sex Assigned at Not on file Legal Sex Female 12:27 AM CDT Gender Identity Not on file Sexual Orientation Not on file Last Filed Vital Signs Vital Sign Reading Time Taken Comments Blood Pressure 110/74 11/30/2024 11:09 AM CHILD LIFE THERAPIST Pulse 79 11/30/2024 11:09 AM CHILD LIFE THERAPIST Temperature 36.6 C (97.8 F) 11/30/2024 11:09 AM CHILD LIFE THERAPIST Respiratory Rate 17 11/30/2024 11:0 9 AM CHILD LIFE THERAPIST Oxygen Saturation 98% 11/30/2024 11: 09 AM CHILD LIFE THERAPIST Inhaled Oxygen Concentration - - Weight 75.7 kg (166 lb 12.8 oz) 025 11:09 AM CHILD LIFE THERAPIST Height 160 cm (5' 3 ) 11/30/2024 11:09 AM CHILD LIFE THERAPIST Body Mass Index 29.55 11/30/2024 11:09 AM CHILD LIFE THERAPIST Plan of Treatment Upcoming Encounters Date Type Department Care Team (Late st Contact Info) Description 03/05/2025 4:15 PM CDT [facility] [address] [place] [address] Sunshine Rhodes, PAC [address] [place] [address] 03/07/2025 3:30 PM CDT Office Visit [facility] [address] [place] [address] Zelalem Chaudhari MD [address] [place] [address] 04/04/2025 2:30 PM CDT [facility] [place] [facility] [place] [address] Sunshine Rhodes, PAC [address] [place] [address] Health Maintenance Due Date Last Done Comments TdaP Immunization 1955 Cologuard 2007 Immunochemical Fecal Occult Blood 2007 SARS-COV-2 Immunization ( season) 2024 DEXA Bone Density 09/23/2024 09/23/2022 Mammogram 04/04/2025 04/04/2024, 08/29, 06/13/2019, Additional history exists Respiratory Syncytial Virus (RSV) Immunization (Adult) (1 - 1-dose 75+ series) 2032 Colonoscopy 05/09/2034 05/09/2024 Colorectal Cancer Screening 05/09/2034 05/09/2024 Pneumococcal Immunization (50+ years) Completed 08/08/2024, 08/30/2022, 09/13/2019 Pneumococcal Immunization Combined Discontinued 08/08/2024, 08/30/2022, 09/13/2019 Zoster Immunization Completed 08/08/2024, Influenza Immunization Completed 4, 08/30/2022, 09/13/2019, Additional history exists Hepatitis B Immunization Aged Out No longer eligible based on patient's age to complete this topic Hepatitis C Virus (HCV) Screening Discontinued Meningococcal Immunization (ACWY) Aged Out No longer eligible based on patient's age to complete this topic Rotavirus Immunization Aged Out No lo nger eligible based on patient's age to complete this topic Medical Devices Implanted Type Area Assessment Specialist Device Identifier Shelf Expiration Date Model / Serial / Lot Cement Bone Green Palacos Rg Gentamicin 40gm Lf - [id number] Implanted:Qty: 3 on 01/01/2019 by Brain Busby MD at [facility] IMPLANT Right: Knee [employer] 10/27/2020 [id number] / [id number] / [id number] Truliant Femoral Component Cruciate Retainted, Cemented, Size 3 Implanted:Qty: 1 on 01/01/2019 by Brain Busby MD at [facility] Right: Knee [employer] 03/05/2028 [id number] / [id number] / [id number] Truliant Crc Tibial Insert Cr Constrained Implanted:Qty: 1 on 01/01/2019 by Brain Busby MD at [facility] Right: Knee [employer] 07/04/2026 [id number] / [id number] / [id number] Truliant Fit Tibial Tray Implanted:Qty: 1 on 01/01/2019 by Brain Busby MD at [facility] Right: Knee [employer] 05/21/2028 [id number] / [id number] / [id number] Procedures Procedure Name Priority Date/Time Associated Diagnosis Comments PODIATRY CONSULT 01/14/2025 12:0 0 AM CHILD LIFE THERAPIST CBC WITH AUTO DIFFERENTIAL Routine 11/30/2024 1:04 PM CHILD LIFE THERAPIST Memory changes CMP (COMPREHENSIVE METABOLIC PANEL) Routine 11/30/2024 1:04 PM CHILD LIFE THERAPIST Memory changes COMPLETE BLOOD COUNT (CBC) WITH DIFF Routine 11/30/2024 1:04 PM CHILD LIFE THERAPIST Memory changes METHYLMALONIC ACID, QN, MMAS Routine 11/30/2024 1:04 PM CHILD LIFE THERAPIST Memory changes FOLIC ACID (FOLATE) Routine 11/30/2024 1 :04 PM CHILD LIFE THERAPIST Memory changes THYROID STIMULATING HORMONE (TSH) Routine 11/30/2024 1:04 PM CHILD LIFE THERAPIST Memory changes VITAMIN B12 Routine 11/30/2024 1:04 PM CHILD LIFE THERAPIST Memory changes KAYLA SCREENING BILATERAL DIGITAL W CAD W FANTA Routine 04/04/2024 12:40 PM CDT Screening mammogram for breast cancer KAYLA BONE DENSITOMETRY AXIAL SKELETON Routine 09/23/2022 9:33 AM CDT Low bone mass Post-menopausal from Last 3 Months or Most Recently Relevant to Health Maintenance Results * PODIATRY CONSULT (01/14/2025 12:00 AM CHILD LIFE THERAPIST) 01/14/2025 us Provider Scan GENERIC SCAN ORDERS CONSULT Kati osborn Result SCAN * CBC WITH AUTO DIFFERENTIAL (11/30/2024 1:04 PM CHILD LIFE THERAPIST) WBC 8.08 4.00 - 12.00 10(3)/mcL 11/30/2024 1:08 PM [facility] RBC 4.78 3.80 - 5.30 10(6)/mcL 11/30/2024 1:08 PM [facility] HEMOGLOBIN (HGB) 14.6 12.0 - 15.8 g/dL 11/30/2024 1:08 PM [facility] HEMATOCRIT (HCT) 44.7 36.0 - 47.0 % 11/30/2024 1:08 PM [facility] MCV 93.5 82.0 - 96.0 fL 11/30/2024 1:08 PM [facility] MCH 30.5 26.0 - 34.0 pg 11/30/2024 1:08 PM [facility] MCHC 32.7 31.0 - 36.0 g/dL 11/30/2024 1:08 PM [facility] PLATELET COUNT 301 140 - 440 10(3)/mcL 11/30/2024 1:08 PM [facility] RDW 12.5 11.8 - 15.5 % 11/30/2024 1:08 PM [facility] MPV 11.5 9.7 - 12.4 fL 11/30/2024 1:08 PM [facility] NEUTROPHILS 59.8 47.0 - 73.0 % 11/30/2024 1:08 PM [facility] LYMPHOCYTES 29.0 18.0 - 42.0 % 11/30/2024 1:08 PM [facility] MONOCYTES 8.4 4.0 - 12.0 % 11/30/2024 1:08 PM [facility] EOSINOPHILS 2.2 0.0 - 5.0 % 11/30/2024 1:08 PM [facility] BASOPHILS 0.6 0.0 - 1.0 % 11/30/2024 1:08 PM [facility] ABSOLUTE NEUTROPHILS 4.83 1.60 - 7.70 10(3)/mcL 11/30/2024 1:08 PM [facility] ABSOLUTE LYMPHOCYTES 2.34 1.30 - 3.20 10(3)/[facility] 11/30/2024 1:08 PM CHILD LIFE THERAPIST [facility] ABSOLUTE MONOCYTES 0.68 0.20 - 1.00 10(3)/[facility] 11/30/2024 1:08 PM CHILD LIFE THERAPIST [facility] ABSOLUTE EOSINOPHIL 0.18 0.00 - 0.40 10(3)/[facility] 11/30/2024 1:08 PM CHILD LIFE THERAPIST [facility] ABSOLUTE BASOPHILS 0.05 0.00 - 0.10 10(3)/[facility] 11/30/2024 1:08 PM CHILD LIFE THERAPIST [facility] NRBC PER 100 WBC 0 11/30/19 25 1:08 PM [facility] Blood Venipuncture / Unknown 11/30/2024 1:04 PM CHILD LIFE THERAPIST 11/30/2024 1:04 PM [facility] Zelalem Chaudhari MD HEMATOLOGY ORDERABLES Final Result [facility] [address] [place] [address] * METHYLMALONIC ACID, QN, MMAS (11/30/2024 1:04 PM [facility]) Pathologist [facility] METHYLMALONIC ACID, QN 0.16 <=0.40 nmol/mL 12/05/2024 8:03 AM [facility] Comment: ADDITIONAL INFORMATION This test was developed and its performance characteristics determined by [facility] in a manner consistent with CLIA requirements. This test has not been cleared or approved by the U.S. Food and Drug Administration. Test Performed by: [address] [address] Power Cleaner Operator: Lissy Nelson Ph.D.; CLIA# [id number] Blood Venipuncture / Unknown 11/30/2024 1:04 PM CHILD LIFE THERAPIST 11/30/2024 1:04 PM CHILD LIFE THERAPIST us Zelalem Chaudhari MD LAB SEND OUTS Final Result Performing Organization Address City/[facility]/ZIP Co de Phone Number [facility] * VITAMIN B12 (11/30/2024 1:04 PM CHILD LIFE THERAPIST) VITAMIN B12 675 213 - 816 pg/mL 11/30/2024 2:47 PM CHILD LIFE THERAPIST [facility] Blood Venipuncture / Unknown 11/30/2024 1:04 PM CHILD LIFE THERAPIST 11/30/2024 1:04 PM CHILD LIFE THERAPIST us Zelalem Chaudhari MD CHEMISTRY ORDERABLES Final R esult Performing Organization Address [facility] Co de Phone Number [facility] [address] [place] [address] * THYROID STIMULATING HORMONE (TSH) (11/30/2024 1:04 PM CHILD LIFE THERAPIST) TSH 0.629 0.300 - 5.000 mIU/L 11/30/2024 1:52 PM CHILD LIFE THERAPIST [facility] Blood Venipuncture / Unknown 11/30/2024 1:04 PM CHILD LIFE THERAPIST 11/30/2024 1:04 PM CHILD LIFE THERAPIST us Zelalem Chaudhari MD CHEMISTRY ORDERABLES Final R esult Performing Organization Address City/[facility] Co de Phone Number [facility] [address] [place] [address] * FOLIC ACID (FOLATE) (11/30/2024 1:04 PM CHILD LIFE THERAPIST) FOLATE 9.0 7.0 - 31.4 ng/mL 11/30/2024 2:47 PM CHILD LIFE THERAPIST [facility] IS THE PATIENT REQUIRED TO BE FASTING? No 11/30/2024 2:47 PM CHILD LIFE THERAPIST [facility] Blood Venipuncture / Unknown 11/30/2024 1:04 PM CHILD LIFE THERAPIST 11/30/2024 1:04 PM CHILD LIFE THERAPIST us Zelalem Chaudhari MD CHEMISTRY ORDERABLES Final R esult [facility] [address] [place] [address] * (ABNORMAL) CMP (COMPREHENSIVE METABOLIC PANEL) (11/30/2024 1:04 PM CHILD LIFE THERAPIST) SODIUM 143 136 - 145 mmol/L 11/30/2024 1:39 PM [facility] POTASSIUM 4.1 3.5 - 5.1 mmol/L 11/30/2024 1:39 PM [facility] CHLORIDE 105 98 - 107 mmol/L 11/30/2024 1:39 PM [facility] CO2, VENOUS 31(H) 22 - 30 mmol/L 11/30/2024 1:39 PM [facility] ANION GAP 11.1 <18.0 mmol/L 11/30/2024 1:39 PM [facility] GLUCOSE 81 70 - 99 mg/dL 11/30/2024 1:39 PM [facility] BUN 15 10 - 20 mg/dL 11/30/2024 1:39 PM [facility] CREATININE, BLOOD 0.77 0.60 - 1.00 mg/dL 11/30/2024 1:39 PM [facility] BUN/CREATININE RATIO 19 12 - 20 ratio 11/30/2024 1:39 PM [facility] TOTAL PROTEIN 7.3 6.3 - 8.2 g/dL 11/30/2024 1:39 PM [facility] ALBUMIN 4.0 3.5 - 5.0 g/dL 11/30/2024 1:39 PM [facility] A/G RATIO 1.2 1.0 - 2.2 11/30/2024 1:39 PM [facility] CALCIUM 9.0 8.7 - 10.5 mg/dL 11/30/2024 1:39 PM CHILD LIFE THERAPIST [facility] T BILI 0.6 0.2 - 1.2 mg/dL 11/30/2024 1:39 PM CHILD LIFE THERAPIST [facility] SGOT (AST) 17 5 - 34 U/L 11/30/2024 1:39 PM CHILD LIFE THERAPIST [facility] SGPT (ALT) 14 0 - 55 U/L 11/30/2024 1:39 PM CHILD LIFE THERAPIST [facility] ALKALINE PHOSPHATASE 68 40 - 150 U/L 11/30/2024 1:39 PM CHILD LIFE THERAPIST [facility] IS THE PATIENT REQUIRED TO BE FASTING? No 11/30/2024 1:39 PM CHILD LIFE THERAPIST [facility] GFR, ESTIMATED >60 >=60 11/30/2024 1:39 PM CHILD LIFE THERAPIST [facility] Comment: Creatinine Clearance is the preferred criteria for selecting drug dose adjustments in renally impaired patients. The GFR is provided as additional pertinent clinical information. GFR is reported in mL/min/1.73 sq m. Calculation based on the Chronic Kidney Disease Epidemiology Collaboration (CKD- EPI) equation refit without adjustment for race. GFR, EST. >60 >=60 025 1:39 PM CHILD LIFE THERAPIST [facility] GFR, EST. NONAFRICAN >60 >=60 11/30/2024 1:39 PM CHILD LIFE THERAPIST [facility] Blood Venipuncture / Unknown 11/30/2024 1:04 PM CHILD LIFE THERAPIST 11/30/2024 1:04 PM CHILD LIFE THERAPIST us Zelalem Chaudhari MD CHEMISTRY ORDERABLES Final R esult [facility] [address] [place] [address] * KAYLA SCREENING BILATERAL DIGITAL W CAD W FANTA (04/04/2024 12:40 PM CDT) Anatomical Region Laterality Modality breast Bilateral Mammography 04/04/2024 12:3 2 PM CDT Narrative 04/04/2024 2:49 PM CDT - KAYLA SCREENING BILATERAL DIGITAL W CAD W FANTA BILATERAL DIGITAL SCREENING MAMMOGRAM 3D/2D WITH CAD WITH MEDIOLATERAL OBLIQUE CRANIOCAUDAL: 04/04/2024 The study was acquired using digital technology and interpreted from soft copy. Current study was also evaluated with ICAD version 7.2. 2D digital mammographic views, as well as 3D digital tomosynthesis were performed in the CC and MLO projections. CLINICAL: Routine screening. Patient has no complaints. Previous cervical fusion. Personal history of skin cancer. Maternal aunt had breast cancer. COMPARISONS: Comparison is made to exams dated: 09/23/2022, 06/26/2019, 06/13/2019, 06/22/2016, and 05/14/2016 [facility]. BREAST TISSUE:There are scattered fibroglandular densities in both breasts. FINDINGS: No significant masses, calcifications, or other findings are seen in either breast. There has been no significant interval change. IMPRESSION: BI-RAD 1 NEGATIVE There is no mammographic evidence of malignancy. A 1 year screening mammogram is recommended. A letter will be sent to the patient with these results. The patient will be entered into a reminder system with a target due date of 1 year for her next screening exam. Electronically signed by: Se terry/raymond:04/04/2024 14:04:12 [employer] Plant Operators(s): RT Ines(R)(M), [facility] letter sent: Normal Exam Reading location: [facility] BI-RADS: 1 Negative Procedure Note Se Rizvi MD - 04/04/2024 - KAYLA SCREENING BILATERAL DIGITAL W CAD W FANTA BILATERAL DIGITAL SCREENING MAMMOGRAM 3D/2D WITH CAD WITH MEDIOLATERAL OBLIQUE CRANIOCAUDAL: 04/04/2024 The study was acquired using digital technology and interpreted from soft copy. Current study was also evaluated with ICAD version 7.2. 2D digital mammographic views, as well as 3D digital tomosynthesis were performed in the CC and MLO projections. CLINICAL: Routine screening. Patient has no complaints. Previous cervical fusion. Personal history of skin cancer. Maternal aunt had breast cancer. COMPARISONS: Comparison is made to exams dated: 09/23/2022, 06/26/2019, 06/13/2019, 06/22/2016, and 05/14/2016 [facility]. BREAST TISSUE:There are scattered fibroglandular densities in both breasts. FINDINGS: No significant masses, calcifications, or other findings are seen in either breast. There has been no significant interval change. IMPRESSION: BI-RAD 1 NEGATIVE There is no mammographic evidence of malignancy. A 1 year screening mammogram is recommended. A letter will be sent to the patient with these results. The patient will be entered into a reminder system with a target due date of 1 year for her next screening exam. Electronically signed by: Se terry/raymond:04/04/2024 14:04:12 [employer] Plant Operators(s): RT Ines(R)(M), [facility] letter sent: Normal Exam Reading location: [facility] BI-RADS: 1 Negative us Sunshine Rhodes PAC IMG MAMMO ORDERABLES Fin al Result * KAYLA BONE DENSITOMETRY AXIAL SKELETON (09/23/2022 9:33 AM CDT) Anatomical Region Laterality Modality BODY N/A Computed Radiogr aphy 09/23/2022 2:18 PM CDT Impressions 09/23/2022 2:21 PM CDT IMPRESSION: Normal lumbar spine bone mineral density. Low bone mass of the left hip. 10 year risk for a major osteoporotic fracture is 12.4 %, 10 year risk for a hip fracture is 1.8 % REFERENCE: Bone mineral density: Normal (T-score above or = -1.0) Low bone mass (T-score between -1.0 and -2.5) replaces the previously used term osteopenia Osteoporosis (T-score = or below -2.5) Medical evaluation for secondary causes of low bone mineral density may be appropriate. FRAX is a World Health Organization validated fracture risk assessment tool that calculates a person's 10 year probability of a major osteoporosis related fracture and hip fracture. According to the National Osteoporosis Foundation guidelines, postmenopausal women and men age 50 or older with low bone mass and a 10 year probability of a major osteoporosis related fracture = or greater than 20% or a 10 year probability of a hip fracture = or greater than 3% should be considered for treatment. For further information, including treatment recommendations, please refer to the 2013 ISCD Official Positions (http://www.iscd.org) and the NOF's Clinician's Guide to Prevention and Treatment of Osteoporosis (http://www.nof.org/professionals/clinical-guidelines) Narrative 09/23/2022 2:21 PM CDT EXAM DESCRIPTION: [facility] BONE DENSITOMETRY AXIAL SKELETON REASON FOR STUDY: 67 y/o year old F with given history of screening. Assessment Specialist/Model: [employer] (S/N [id number]) CLINICAL INFORMATION: Current height: 63 inches Maximum height: 63 inches Weight: 185.2 pounds Risk factors: Secondary osteoporosis and rheumatoid arthritis COMPARISON: 10/29/2011 FINDINGS: AP LUMBAR SPINE L1-L4: Total BMD is 1.204 g/cm2 T-score is 0.1 1.3% increased BMD compared to the prior exam which is not statistically significant. LEFT HIP: Total BMD is 0.872 g/cm2 T-score is -1.1 0.7% decreased BMD compared to the prior exam which is not statistically significant. Femoral neck BMD is 0.782 g/cm2 T-score is -1.8 FRAX: 10 year risk for a major osteoporotic fracture is 12.4 %, 10 year risk for a hip fracture is 1.8 % THIS IS AN ELECTRONICALLY VERIFIED FINAL REPORT 09/23/2022 2:18 PM - Electronically signed by Tal Londono M.D. AG: [facility] Report ID: [id number] Reading Location: [id number] Procedure Note Tal Londono MD - 09/23/2022 EXAM DESCRIPTION: [facility] BONE DENSITOMETRY AXIAL SKELETON REASON FOR STUDY: 67 y/o year old F with given history of screening. Assessment Specialist/Model: [employer] (S/N [id number]) CLINICAL INFORMATION: Current height: 63 inches Maximum height: 63 inches Weight: 185.2 pounds Risk factors: Secondary osteoporosis and rheumatoid arthritis COMPARISON: 10/29/2011 FINDINGS: AP LUMBAR SPINE L1-L4: Total BMD is 1.204 g/cm2 T-score is 0.1 1.3% increased BMD compared to the prior exam which is not statistically significant. LEFT HIP: Total BMD is 0.872 g/cm2 T-score is -1.1 0.7% decreased BMD compared to the prior exam which is not statistically significant. Femoral neck BMD is 0.782 g/cm2 T-score is -1.8 FRAX: 10 year risk for a major osteoporotic fracture is 12.4 %, 10 year risk for a hip fracture is 1.8 % THIS IS AN ELECTRONICALLY VERIFIED FINAL REPORT 09/23/2022 2:18 PM - Electronically signed by Tal Londono M.D. AG: [employer] Report ID: [id number] Reading Location: [place] [address] IMPRESSION: Normal lumbar spine bone mineral density. Low bone mass of the left hip. 10 year risk for a major osteoporotic fracture is 12.4 %, 10 year risk for a hip fracture is 1.8 % REFERENCE: Bone mineral density: Normal (T-score above or = -1.0) Low bone mass (T-score between -1.0 and -2.5) replaces the previously used term osteopenia Osteoporosis (T-score = or below -2.5) Medical evaluation for secondary causes of low bone mineral density may be appropriate. FRAX is a World Health Organization validated fracture risk assessment tool that calculates a person's 10 year probability of a major osteoporosis related fracture and hip fracture. According to the National Osteoporosis Foundation guidelines, postmenopausal women and men age 50 or older with low bone mass and a 10 year probability of a major osteoporosis related fracture = or greater than 20% or a 10 year probability of a hip fracture = or greater than 3% should be considered for treatment. 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
--- OUTSIDE RECORDS SUMMARY | 2025-02-21 16:31 | XMS_ITS | Encounter Summary ---
Author Organization [facility] Address [address] [facility] [place] [address] Phone Care Team Providers Care Laborer Bituminous Paving Name Role Phone Sunshine Rhodes JENNIFER Primary Care Provider + Reason for Visit * Reason Comments Medication Refill Encounter Details Date Type Department Care Team (Late st Contact Info) Description 02/15/2024 Refill [facility] [address] [place] [address] Mariam Albarran MD [address] [place] [address] Medication Refill Social History Tobacco Use Types Packs/Day Years Used Date Smoking Tobacco: Never Smokeless Tobacco: Never Alcohol Use Standard Drinks/Week Comments No 0 (1 standard drink = 0.6 oz pur e alcohol) PHQ-2 Answer Date Recorded Total Score - Questions 1-9 0 12/30 Comments No Sex and Gender Information Value Date Recorded Sex Assigned at Not on file Legal Sex Female 12:27 AM CDT Gender Identity Not on file Sexual Orientation Not on file documented as of this encounter Miscellaneous Notes * Telephone Encounter - Patti Seaman RN - 02/16/2024 9:22 AM CDT Medication(s) refilled and [facility] Chronic Medication Refill Standing Order for Pediatricand Adult Patients. Requested Prescriptions Pending Prescriptions Disp Refills metoprolol Succinate (TOPROL-XL) 25 MG TABLET SR 24 HR [Pharmacy Med Name: Metoprolol Succinate ER 25 MG Oral Tablet Extended Release 24 Hour] 90 Tablet 1 Sig: Take 1 tablet by mouth once daily Beta-Blockers Protocol Passed - 02/15/2024 3:31 PM Passed - BP on record in the past year Clinician-entered: BP Readings from Last 3 Encounters: 01/19/24 126/84 03/28/23 122/78 08/30/22 118/76 Patient-entered: No data recorded Passed - Visit with relevant provider in past 12 months or upcoming 90 days Recent Visits Date Type Provider Dept 01/19/24 Office Visit Sunshine Rhodes PAC [facility] 03/28/23 Office Visit Mariam Albarran MD [facility] Showing recent visits within past 365 days and meeting all other requirements Future Appointments Date Type Provider Dept 04/18/24 Appointment Sunshine Rhodes PAC [facility] Showing future appointments within next 90 days and meeting all other requirements pantoprazole (PROTONIX) 40 MG Tablet Delayed Response [Pharmacy Med Name: Pantoprazole Sodium 40 MGOral Tablet Delayed Release] 90 Tablet 1 Sig: Take 1 tablet by mouth once daily Proton Pump Inhibitors Protocol Passed - 02/15/2024 3:31 PM Passed - Visit with relevant provider in past 12 months or upcoming 90 days Recent Visits Date Type Provider Dept 01/19/24 Office Visit Sunshine Rhodes PAC [facility] 03/28/23 Office Visit Mariam Albarran MD [facility] Showing recent visits within past 365 days and meeting all other requirements Future Appointments Date Type Provider Dept 04/18/24 Appointment Sunshine Rhodes PAC [facility] Showing future appointments within next 90 days and meeting all other requirements documented in this encounter Plan of Treatment Upcoming Encounters Date Type Department Care Team (Late st Contact Info) Description 03/05/2025 4:15 PM CDT Office Visit [facility] [address] [place] [address] Sunshine Rhodes, PAC [address] [place] [address] 03/07/2025 3:30 PM CDT Office Visit [facility] - Neurology [facility] [address] [facility] [address] Zelalem Chaudhari MD [address] [place] [address] 04/04/2025 2:30 PM CDT Office Visit [facility] [address] [place] [address] Sunshine Rhodes, PAC [address] [place] [address] documented as of this encounter Visit Diagnoses Diagnosis Hypertension, unspecified type documented in this encounter Additional Health Concerns Infection Onset Date Last Indicated Resolved Time 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
--- OUTSIDE RECORDS SUMMARY | 2025-02-21 16:31 | XMS_ITS | Clinical Summary ---
Author Organization [facility] Address [address] [place] [id number] Care Team Providers Care Internet Programmer Name Role Phone Mariam Albarran MD Primary Care Provider Allergies Active Allergy Reactions Criticality Noted Date Comments Codeine Nausea only,Vomiting Low 12/24/2015 Reaction: Nausea, Vomiting, , Gabapentin Other (See comments) Low 01/05/2018 Could not walk, AND EXTREME PAIN Hydrocodone Other (See comments) Low 12/28/2018 HEADACHES Sulfa (Sulfonamide Antibiotics) Eye irritation Reaction: Erythema of the eyes, , Sulfasalazine Swelling Medium 12/24/2015 Medications celecoxib (CeleBREX) 200 mg capsule Take one by mouth two times per day 60 4 03/07/20 07 Active amitriptyline (ELAVIL) 25 mg tablet TAKE 1 TABLET BY MOUTH EVERY DAY AT NIGHT 4 09/17/20 18 Active FLUoxetine (PROzac) 40 mg capsule TAKE ONE CAPSULE BY MOUTH EVERY DAY 10/16/20 18 Active hydroxychloroquine (PLAQUENIL) 200 mg tablet Take 200 mg by mouth 2 (two) times a day. 1 10/02/20 18 Active hydrOXYzine (ATARAX) 10 mg tablet Take 25 mg by mouth. 05/24/20 18 Active meclizine (ANTIVERT) 25 mg tablet Take by mouth. 05/03/20 18 Active methotrexate sodium 2.5 mg tablets,dose pack Take 25 mg by mouth. Active metoprolol XL (TOPROL-XL) 25 mg 24 hr tablet Take 25 mg by mouth daily. 3 09/21/20 18 Active vitamin E acetate, bulk, 50 % powder Take by mouth. Active cyclobenzaprine (FLEXERIL) 10 mg tablet Take 0.5-1 tablets (5-10 mg total) by mouth 3 (three) times a day as needed for muscle spasms. 30 tablet 01/09/20 19 Active SUMAtriptan (IMITREX) 6 mg/0.5 mL injectionIndicatio ns:Migraine Inject 6 mg under the skin as needed for migraine. 01/13/20 19 Active cholecalciferol (VITAMIN D-3) 5,000 unit tabletIndications: Vitamin D Deficiency Take 5,000 Units by mouth daily. 01/13/20 19 Active docusate sodium (COLACE) 100 mg capsuleIndications :constipation Take 100 mg by mouth 2 (two) times a day. 01/13/20 19 Active acetaminophen (TYLENOL) 500 mg tablet Take 500 mg by mouth. 01/05/20 19 Active adalimumab (HUMIRA PEN) 40 mg/0.8 mL pen injector kit Inject under the skin. Active lidocaine (LIDODERM) 5 % APPLY TO AFFECTED AREA NO MORE THAN 12 HOURS PER DAY 11 12/13/19 19 Active senna-docusate (PERICOLACE) 8.6-50 mg Take by mouth. 01/05/20 19 Active busPIRone (BUSPAR) 7.5 mg tablet TAKE TWO TABLETS BY MOUTH TWO TIMES A DAY 5 06/04/20 19 Active HYDROcodone-acetam inophen (NORCO) 5-325 mg per tabletIndications: Pain Take 1-2 tablets every 4 hours as needed for pain 30 tablet 09/27/20 19 Active Additional Information Patient not taking.Reported on 11/08/[address] (PROTONIX) 40 mg EC tablet Take 40 mg by mouth daily 07/28/20 20 Active cyclobenzaprine (FLEXERIL) 10 mg tabletIndications: Muscle spasm of back Take 1 tablet (10 mg total) by mouth 3 (three) times a day as needed for muscle spasms Do not operate machiner, such as driving while taking Flexeril. 60 tablet 11/08/20 21 Active ondansetron ODT (ZOFRAN-ODT) 4 mg disintegrating tablet Take 1 tablet (4 mg total) by mouth every 8 (eight) hours as needed for nausea or vomiting 20 tablet 07/22/20 22 Active metoclopramide (REGLAN) 10 mg tablet Take 1 tablet (10 mg total) by mouth every 8 (eight) hours as needed (Nausea/vomitin g) 20 tablet 07/22/20 22 Active Active Problems Problem Noted Date Diagnosed Date History of total knee arthroplasty, right 2018 Acute respiratory failure with hypoxia 9 Anxiety and depression 10/06/2017 History of arthrodesis 04/19/2017 Overview (04/22/2017): H/O: arthrodesis Degeneration of intervertebral disc of lumbar re gion 01/18/2017 Overview (03/04/2017): Degeneration of lumbar intervertebral disc Seronegative rheumatoid arthritis 08/31/2016 Migraine with aura and witho ut status migrainosus, not intractable 01/12/2016 Pseudogout of knee 01/12/2016 Migraine 06/11/2014 Overview (03/04/2017): MIGRNE UNSP WO NTRC MGRN Osteoarthritis 04/13/2014 Overview (03/04/2017): OA (osteoarthritis) Surgical History Surgery Date Site/Laterality Comments BACK SURGERY Medical History Medical History Date Comments Breast cyst left Gout Rheumatoid arthritis (HCC) Migraines Depression Family History Medical History Relation Name Comments Parkinsonism Father 2 Parkinson's dis ease; Cancer Maternal Grandmother 2 cance r; Relation Name Status Comments Father 1 Alive Father 2 Maternal Grandmother 1 Maternal Grandmother 2 Social History Tobacco Use Types Packs/Day Years Used Date Smoking Tobacco: Never Smokeless Tobacco: Never Tobacco Cessation:Counseling Given: Not Answered Alcohol Use Standard Drinks/Week Comments Yes 0 (1 standard drink = 0.6 oz pur e alcohol) Comments No Sex and Gender Information Value Date Recorded Sex Assigned at Not on file Legal Sex 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 Gender Identity Not on file Sexual Orientation Not on file Obstetrics History Last Filed Vital Signs Vital Sign Reading Time Taken Comments Blood Pressure 132/78 06/20/2024 12:00 PM CDT Pulse 78 06/20/2024 12:00 PM CDT Temperature 36.4 C (97.5 F) 06/20/2024 12:00 PM CDT Respiratory Rate 20 06/20/2024 12:00 PM CDT Oxygen Saturation 96% 06/20/2024 12:00 PM CDT Inhaled Oxygen Concentration - - Weight 86.2 kg (190 lb) 06/20/2024 12:00 PM CDT Height 160 cm (5' 3 ) 06/20/2024 12:00 PM CDT Body Mass Index 33.66 06/20/2024 12:00 PM CDT Plan of Treatment Health Maintenance Due Date Last Done Comments Colon Cancer Screening-Colonoscopy 1957 Depression Screening 1957 Fall Risk Assessment 1957 Hepatitis C Screening 1957 DTaP/Tdap/Td Vaccine (1 - Tdap) 1968 Hepatitis B Screening 1975 Zoster Vaccine (1 of 2) 1976 Pneumococcal vaccine 65+ (2 of 2 - PCV) 09/13/2020 09/13/2019 Well Visit 65+ 2022 Influenza Vaccine (#1) 2024 2, 09/13/2019, 10/06/2017, Additional history exists Osteoporosis Screening-Bone Density Scan 09/23/2024 09/23/2022, 09/23/2022 Breast Cancer Screening-Mammogram 04/04/2025 04/04/2024, 04/04/2024, 09/23/2022, Additional history exists Procedures Procedure Name Priority Date/Time Associated Diagnosis Comments DIAGNOSTIC MAMMOGRAM BILATERAL W WALT Schedule Routine, Read Routine (OP Routine) 11/23/2017 2:14 PM CHEMICAL PRODUCTION MACHINE OPERATOR Screening breast examination from Last 3 Months or Most Recently Relevant to Health Maintenance Results * Diagnostic Mammogram Bilateral W Walt (11/23/2017 2:14 PM CHEMICAL PRODUCTION MACHINE OPERATOR) Anatomical Region Laterality Modality Breast Bilateral Mammography Impressions 11/23/2017 2:16 PM CHEMICAL PRODUCTION MACHINE OPERATOR BIRADS Category 1: Negative mammogram. Digital technology was employed plus computer-aided detection software (R2) was utilized in interpretation of these images. This facility utilizes a reminder system to notify patients of yearly mammograms. Electronically signed by: Russ Gamboa M.D. [facility] 11/23/2017 2:16 PM CHEMICAL PRODUCTION MACHINE OPERATOR EXAMINATION: Digital bilateral diagnostic mammogram with tomosynthesis. HISTORY: Left breast itching PRIOR: Diagnostic left breast mammogram from 06/22/2016 and screening mammogram from 05/14/2016 DENSITY: Heterogeneously dense which could obscure small masses FINDINGS: The nodular density in the left breast is no longer seen. No new dominant mass, architectural distortion, nipple retraction, skin thickening, or suspicious calcifications are seen. Procedure Note Russ Gamboa MD / Provider, MD Tameka - 11/23/2017 EXAMINATION: Digital bilateral diagnostic mammogram with tomosynthesis. HISTORY: Left breast itching PRIOR: Diagnostic left breast mammogram from 06/22/2016 and screening mammogram from 05/14/2016 DENSITY: Heterogeneously dense which could obscure small masses FINDINGS: The nodular density in the left breast is no longer seen. No new dominant mass, architectural distortion, nipple retraction, skin thickening, or suspicious calcifications are seen. IMPRESSION: BIRADS Category 1: Negative mammogram. Digital technology was employed plus computer-aided detection software (R2) was utilized in interpretation of these images. This facility utilizes a reminder system to notify patients of yearly mammograms. Electronically signed by: Russ Gamboa M.D. Mariam Albarran MD IMG MAMMO PROCEDURES Final Result from Last 3 Months or Most Recently Relevant to Health Maintenance Insurance MEDICARE [facility] MEDICARE ADVANTAGE [facility] ANTH ACCESS [facility] Address: [address] [place] [address] MEDICARE MEDICARE [facility] MEDICARE Care Teams Internet Programmer Relationship Specialty Start Date End Date Mariam Albarran MD PCP - General 02/25/17
--- OUTSIDE RECORDS SUMMARY | 2025-02-21 16:31 | XMS_ITS | Encounter Summary ---
Author Organization [facility] Address [address] [facility] [place] [address] Phone Care Team Providers Care Milk Tanker Driver Name Role Phone Sunshine Rhodes PAC Primary Care Provider + Reason for Visit * Reason Onset Date Comments Advice Only 02/21/2025 Urinary Pain 02/21/2025 Encounter Details Date Type Department Care Team (Late st Contact Info) Description 02/21/2025 Nurse Triage [facility] [address] [place] [address] Sunshine Rhodes, PAC [address] [place] [address] Advice Only; Urinary Pain Social History Tobacco Use Types Packs/Day Years [...] encounter Miscellaneous Notes * Telephone Encounter - Ludmila Kang RN - 02/21/2025 1:06 PM CDT SITUATION: Patient calling stating she has UTI symptoms that are worsening BACKGROUND: Patient contacting PCP office. ASSESSMENT: Symptom Description / Location:3 months ago off and on UTI symptoms Urgency, Burning, Pain in abdomen Denies back pain Denies blood in urine Pain: 6/10, Constant Fever: Denies fever. Treatment / Response: Azo, Water, Cranberry Juice with no relief. RECOMMENDATION: Patient will go be seen at [facility]. No other care advice could be addressed or follow up as patient disconnected the line. Caller agreeable to disposition: go to office now. Care advice provided per triage guideline. Caller verbalized understanding. Due to office unavailability within disposition, advised for patient to be seen at [facility]. Caller agreeable to prompt care/urgent care. - See care advice and disposition for Guideline. First positive answer recorded, all responses to prior questions were negative. If symptoms increase, change or if new symptoms develop, call your health care provider or call back. Recommendations were based on caller information and is not a diagnosis. Verified and reviewed all triage information with caller. Reason for Disposition Severe pain with urination Protocols used: Urination Pain - Female-A-OH standing order available * Telephone Encounter - Ankush White - 02/21/2025 1:05 PM CDT Symptoms: Flank Pain, Urination Pain Outcome: Transfer to head of digital advertising & integration queue Reason: This is the only possible outcome for these symptoms The caller accepted this outcome. documented in this encounter Plan of Treatment Upcoming Encounters Date Type Department Care Team (Late st Contact Info) Description 03/05/2025 4:15 PM CDT Office Visit [facility] Family Medicine [facility] [address] [place] [address] Sunshine Rhodes PAC [address] [place] [place] [address] 03/07/2025 3:30 PM CDT Office Visit [facility] Neurology [facility] [address] [place] [address] Zelalem Chaudhari MD [address] [facility] [place] [address] 04/04/2025 2:30 PM CDT Office Visit [facility] [address] [place] [facility] [place] [address] Sunshine Rhodes PAC [address] [facility] [place] [address] documented as of this encounter Visit Diagnoses Not on filedocumented in this encounter Additional Health Concerns Infection Onset Date Last Indicated Resolved Time MRSA 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
--- OUTSIDE RECORDS SUMMARY | 2025-02-21 16:31 | XMS_ITS | Encounter Summary ---
Author Organization [facility] Address [address] [facility] [place] [address] Phone Care Team Providers Care Fire Extinguisher Charger Name Role Phone Mariam Albarran MD Primary Care Provider [phone] Sunshine Rhodes Primary Care Provider + Reason for Visit * Reason Comments Medication Refill Encounter Details Date Type Department Care Team (Late st Contact Info) Description 07/02/2023 Refill [facility] - Family Medicine [facility] [address] [place] [address] Mariam Albarran MD [address] [place] [address] Medication Refill Social History Tobacco Use Types Packs/Day Years Used Date Smoking Tobacco: Never Smokeless Tobacco: Never Alcohol Use Standard Drinks/Week Comments No 0 (1 standard drink = 0.6 oz pur e alcohol) PHQ-2 Answer Date Recorded Total Score - Questions 1-9 0 05/0 11/2022 Comments No Sex and Gender Information Value Date Recorded Sex Assigned at Not on file Legal Sex Female 12:27 AM CDT Gender Identity Not on file Sexual Orientation Not on file documented as of this encounter Miscellaneous Notes * Telephone Encounter - Patti Seaman RN - 07/04/2023 9:15 AM CDT Medication failed the protocol, provider to review and approve the medication order if appropriate. Requested Prescriptions Pending Prescriptions Disp Refills celecoxib (CeleBREX) 200 MG Capsule [Pharmacy Med Name: Celecoxib 200 MG Oral Capsule] 60 Capsule 2 Sig: Take 1 capsule by mouth twice daily NSAIDs Protocol Failed - 07/02/2023 4:27 PM Failed - Normal serum creatinine in past 12 months No results found for: CREATININE Failed - Not delegated, patient not between 1 and 65 years of age Failed - AST less than 55 or ALT less than 90 in past 12 months No results found for: SGOTAST No results found for: SGPTALT Failed - HGB greater than 10 or HCT greater than 30 in past 12 months HEMOGLOBIN (HGB) Date Value Ref Range Status 05/30/2020 14.4 12.0 - 15.8 g/dL Final HEMATOCRIT (HCT) Date Value Ref Range Status 05/30/2020 44.5 36.0 - 47.0 % Final Passed - Visit with relevant provider in past 12 months or upcoming 90 days Recent Visits Date Type Provider Dept 03/28/23 Office Visit Mariam Albarran MD [facility] 08/30/22 Office Visit Sunshine Rhodes PAC [facility] Showing recent visits within past 365 days and meeting all other requirements Future Appointments No visits were found meeting these conditions. Showing future appointments within next 90 days and meeting all other requirements Passed - No matching NSAID med order in past 45 days No matching medication orders between 05/20/2023 9:15 AM and 07/04/2023 9:15 AM documented in this encounter Plan of Treatment Upcoming Encounters Date Type Department Care Team (Late st Contact Info) Description 03/05/2025 4:15 PM CDT Office Visit [facility] - Family Medicine - [place] [address] [place] [address] Sunshine Rhodes PAC [address] [place] [address] 03/07/2025 3:30 PM CDT Office Visit [facility] - Neurology - [place] [address] [facility] [place] [address] Zelalem Chaudhari MD [address] [place] [address] 04/04/2025 2:30 PM CDT Office Visit [facility] - Family Medicine - [place] [address] [place] [address] Sunshine Rhodes PAC [address] [place] [address] documented as of this encounter Visit Diagnoses Not on filedocumented in this encounter Additional Health Concerns Infection Onset Date Last Indicated Resolved Time MRSA 12/04/2018 12/04/2018 Assessment Noted Time PHQ-9 Depression Total Score: 0 03/28/20 23 12:00 PM CDT documented as of this encounter Care Teams Fire Extinguisher Charger Relationship Specialty Start Date End Date Mariam Albarran MD [address] [place] [address] PCP - General Family Medicine 12/24/15 01/18/24 Sunshine Rhodes PAC [address] [place] [address] PCP - General Physician Performance Test Consultant 01/19/24 documented as of this encounter
--- OUTSIDE RECORDS SUMMARY | 2025-02-21 16:31 | XMS_ITS | Encounter Summary ---
Author Organization [facility] Address [address] [place] [address] Phone Care Team Providers Care Raise Miner Name Role Phone Mariam Albarran MD Primary Care Provider [phone]- [phone] Sunshine Rhodes Primary Care Provider + Reason for Visit * Reason Comments Medication Refill Encounter Details Date Type Department Care Team (Late st Contact Info) Description 09/26/[address] [facility] - Family Medicine [facility] [address] [place] [address] Mariam Albarran MD [address] [place] [address] Medication Refill Social History Tobacco Use Types [...] Telephone Encounter - Patti Seaman RN - 09/26/2023 3:07 PM CDT Medication failed the protocol, provider to review and approve the medication order if appropriate. Requested Prescriptions Pending Prescriptions Disp Refills amitriptyline (ELAVIL) 25 MG Tablet [Pharmacy Med Name: Amitriptyline HCl 25 MG Oral Tablet] 90 Tablet 1 Sig: Take 1 tablet by mouth nightly Not Delegated - Tricyclic Agents Protocol Failed - 09/26/2023 9:49 AM Failed - This refill cannot be delegated Passed - Visit with relevant provider in past 12 months or upcoming 90 days Recent Visits Date Type Provider Dept 03/28/23 Office Visit Mariam Albarran MD [facility] Showing recent visits within past 365 days and meeting all other requirements Future Appointments No visits were found meeting these conditions. Showing future appointments within next 90 days and meeting all other requirements documented in this encounter Plan of Treatment Upcoming Encounters Date Type Department Care Team (Late st Contact Info) Description 03/05/2025 4:15 PM CDT Office Visit [facility] Family Medicine [facility] [address] [place] [address] Sunshine Rhodes PAC [address] [place] [address] 03/07/2025 3:30 PM CDT Office Visit [facility] - Neurology - [place] [address] [place] [address] Zelalem Chaudhari MD [address] [place] [address] 04/04/2025 2:30 PM CDT Office Visit [facility] [address] [place] [address] Sunshine Rhodes, PAC [address] [place] [address] documented as of this encounter Visit Diagnoses Diagnosis Insomnia, unspecified type documented in this encounter Additional Health Concerns Infection Onset Date Last Indicated Resolved Time MRSA 12/04/2018 12/04/2018 Assessment Noted Time PHQ-9 Depression Total Score: 0 03/28/20 23 12:00 PM CDT documented as of this encounter Care Teams Raise Miner Relationship Specialty Start Date End Date Mariam Albarran MD [address] [place] [address] PCP - General Family Medicine 12/24/15 01/18/24 Sunshine Rhodes PAC [address] [place] [address] PCP - General Physician Gusset Folder 01/19/24 documented as of this encounter
--- OUTSIDE RECORDS SUMMARY | 2025-02-21 16:31 | XMS_ITS | Encounter Summary ---
Author Organization [facility] Address [address] [facility] [place] [address] Phone Care Team Providers Care Embedded Developer Name Role Phone Mariam Albarran MD Primary Care Provider [phone]- [phone] Sunshine Rhodes Primary Care Provider + Reason for Visit * Reason Comments Medication Refill Encounter Details Date Type Department Care Team (Late st Contact Info) Description 10/13/2022 Refill [facility] - Family Medicine [facility] [address] [place] [address] Mariam Albarran MD [address] [place] [address] Medication Refill Social History Tobacco Use Types Packs/Day Years Used Date Smoking Tobacco: Never Smokeless Tobacco: Never Alcohol Use Standard Drinks/Week Comments No 0 (1 standard drink = 0.6 oz pur e alcohol) PHQ-2 Answer Date Recorded Total Score - Questions 1-9 0 03/0 01/2022 Comments No Sex and Gender Information Value Date Recorded Sex Assigned at Not on file Legal Sex Female 12:27 AM CDT Gender Identity Not on file Sexual Orientation Not on file COVID-19 Exposure Response Date Recorded In the last 10 days, have yo u been in contact with someone who was confirmed or suspected to have Coronavirus/COVID-19? No / Unsure 09/23/2022 8:24 AM CDT documented as of this encounter Plan of Treatment Upcoming Encounters Date Type Department Care Team (Late st Contact Info) Description 03/05/2025 4:15 PM CDT Office Visit [facility] Family Medicine [facility] [address] [place] [address] Sunshine Rhodes, PAC [address] [place] [address] 03/07/2025 3:30 PM CDT Office Visit [facility] - Neurology [facility] [address] [place] [address] Zelalem Chaudhari MD [address] [place] [address] 04/04/2025 2:30 PM CDT [facility] [place] [address] Sunshine Rhodes, PAC [address] [place] [address] documented as of this encounter Visit Diagnoses Not on filedocumented in this encounter Additional Health Concerns Infection Onset Date Last Indicated Resolved Time 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
--- OUTSIDE RECORDS SUMMARY | 2025-02-21 16:31 | XMS_ITS | Referral Summary ---
Author Organization [facility] Address [address] [place] [address] Care Team Providers Care Veterinary Anatomist Name Role Phone Mariam Albarran MD Primary [...] MGRN Osteoarthritis 04/13/2014 Overview (03/04/2017): OA (osteoarthritis) Social History Tobacco Use Types Packs/Day Years Used Date Smoking Tobacco: Never Smokeless Tobacco: Never Tobacco Cessation:Counseling Given: Not Answered Alcohol Use Standard Drinks/Week Comments Yes 0 (1 standard drink = 0.6 oz pur e alcohol) Comments No Sex and Gender Information Value Date Recorded Sex Assigned at Not on file Legal Sex Female 12:15 AM OILFIELD PLANT AND FIELD OPERATOR Gender Identity Not on file Sexual [...] 06/20/2024 12:00 PM CDT Plan of Treatment Not on file Procedures Procedure Name Priority Date/Time Associated Diagnosis Comments DIAGNOSTIC MAMMOGRAM BILATERAL W WALT Schedule Routine, Read Routine (OP Routine) 11/23/2017 2:14 PM OILFIELD PLANT AND FIELD OPERATOR Screening breast examination from Last 3 Months or Most Recently Relevant to Health Maintenance Results * Diagnostic Mammogram Bilateral W Walt (11/23/2017 2:14 PM OILFIELD PLANT AND FIELD OPERATOR) Anatomical Region Laterality Modality Breast Bilateral Mammography Impressions 11/23/2017 2:16 PM OILFIELD PLANT AND FIELD OPERATOR BIRADS Category 1: Negative mammogram. Digital technology was employed plus computer-aided detection software (R2) was utilized in interpretation of these images. This facility utilizes a reminder system to notify patients of yearly mammograms. Electronically signed by: Russ Gamboa M.D. Narrative 11/23/2017 2:16 PM OILFIELD PLANT AND FIELD OPERATOR EXAMINATION: Digital bilateral diagnostic mammogram with [...] seen. Procedure Note Russ Gamboa MD / ProviderTameka MD - 11/23/2017 EXAMINATION: Digital bilateral diagnostic mammogram [...] Recently Relevant to Health Maintenance Insurance MEDICARE [facility] UHC MEDICARE ADVANTAGE [facility] MEDICARE Address: [address] [address] [place] [address] [employer] [facility] ACCESS Member Subscriber Plan / Payer (Ef fective 2019-Present) Name:Emmy Mendes Relation to Subscriber:Spouse Name:JOLIEOUSMANE Indy Subscriber ID:Not on file Date of :1954 (Home) Address: [address] [place] [address] Payer ID:[id number] (NAIC) Type:[employer] Address: [address] MEDICARE MEDICARE [facility] MEDICARE Care Teams Veterinary Anatomist Relationship Specialty Start Date End Date Mariam Albarran MD PCP - General 02/25/17
--- OUTSIDE RECORDS SUMMARY | 2025-02-21 16:31 | XMS_ITS | Clinical Summary ---
Author Organization [facility] Address [address] [place] [address] Care Team Providers Care Head Of Ethics And Compliance Name Role Phone Unavailable Primary Care Provider Unavailabl e Source Comments [facility],non-owned Affiliates and Associated Physician Practices is amultiple site organization consisting of ambulatory clinics and hospital sitesin [place], [place] and [place]. This disclosure is being madepursuant to the Care Everywhere program and may not contain all information available regarding this patient. Last updated 18.[facility] Active Problems Problem Noted Date Diagnosed Date DDD (degenerative disc disease), lumbosacral 08/2017 Social History Tobacco Use Types Packs/Day Years Used Date Smoking Tobacco: Never Assessed Sex and Gender Information Value Date Recorded Sex Assigned at Not on file Gender Identity Not on file Sexual Orientation Not on file Plan of Treatment Health Maintenance Due Date Last Done Comments BONE DENSITY TESTING 1955 COLOGUARD (AGES 45-75) - COLON CA SCREENING 1957 COLON MONITORING 1957 COLONOSCOPY - COLON CA SCREENING 1957 CT COLONOGRAPHY - COLON CA SCREENING 1957 Colorectal Cancer Screening 1957 FIT - COLON CA SCREENING 1957 FLEX SIG - COLON CA SCREENING 1957 LIPID TESTING 1957 MAMMOGRAM 1957 MEDICARE AWV 12 MONTHS 1957 HEPATITIS C SCREENING 05/23/1975 DTAP/TDAP/TD VACCINES (1 - Tdap) 1976 PNEUMOCOCCAL VACCINE 50+ (1 of 1 - PCV) 2007 ZOSTER VACCINE (1 of 2) 2007 COVID-19 VACCINE (1 - season) 2024 INFLUENZA VACCINE (#1) 2024 2, 09/13/2019, 10/06/2017, Additional history exists DEPRESSION SCREENING 11/28/2024 Respiratory Syncytial Virus (RSV) Vaccine Pt: or over 60 yrs (1 - 1-dose 75+ series) 2032 HEPATITIS B VACCINE Aged Out No longe r eligible based on patient's age to complete this topic HIB VACCINE Aged Out No longer eligi ble based on patient's age to complete this topic HPV VACCINE Aged Out No longer eligi ble based on patient's age to complete this topic MENINGOCOCCAL (Group B) VACCINE SHARED DECISION-MAKING Aged Out No longer eligible based on patient's age to complete this topic MENINGOCOCCAL GROUPS A/C/Y/W VACCINE Aged Out No longer eligible based on patient's age to complete this topic EMMY DSOUZA Personal/Family 1955 [address] [place] [address] EMMY KIM Personal/Family 1955 [address] [place] [address] EMMY SUE Personal/Family 1955 [address] [place] [address]
--- OUTSIDE RECORDS SUMMARY | 2025-02-21 16:31 | XMS_ITS | Encounter Summary ---
Author Organization [facility] Address [address] [facility] [place] [address] Phone Care Team Providers Care Apparel Stock Checker Name Role Phone Mariam Albarran MD Primary Care Provider Sunshine Rhodes Primary Care Provider + Reason for Visit * Reason Comments Medication Refill Encounter Details Date Type Department Care Team (Late st Contact Info) Description 06/23/2021 Refill [facility] [address] [place], [place] [id number] Mariam Albarran MD [address] [place] [address] Medication Refill Social History Tobacco Use Types Packs/Day Years Used Date Smoking Tobacco: Never Smokeless Tobacco: Never Alcohol Use Standard Drinks/Week Comments No 0 (1 standard drink = 0.6 oz pur e alcohol) PHQ-2 Answer Date Recorded Total Score - Questions 1-9 0 06/30 Comments No Sex and Gender Information Value Date Recorded Sex Assigned at Not on file Legal Sex Female 12:27 AM CDT Gender Identity Not on file Sexual Orientation Not on file documented as of this encounter Miscellaneous Notes * Telephone Encounter - Sehr, Patti L, RN - 06/24/2021 11:18 AM CDT Last ordered: 1 year ago by Mariam Albarran MD Last refill: 04/17/2020 Last Rx was more than 1 year ago and was only for 30 days documented in this encounter Plan of Treatment Upcoming Encounters Date Type Department Care Team (Late st Contact Info) Description 03/05/2025 4:15 PM CDT Office Visit [facility] [address] [place] [address] Sunshine Rhodes, PAC [address] [place] [address] 03/07/2025 3:30 PM CDT Office Visit [facility] [address] [facility] [place] [address] Zelalem Chaudhari MD [address] [place] [address] 04/04/2025 2:30 PM CDT Office Visit [facility] [address] [place] [address] Sunshine Rhodes, PAC [address] [place] [address] documented as of this encounter Visit Diagnoses Diagnosis Anxiety and depression Dysthymic disorder documented in this encounter Additional Health Concerns Infection Onset Date Last Indicated Resolved Time 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
--- OUTSIDE RECORDS SUMMARY | 2025-02-21 16:31 | XMS_ITS | Encounter Summary ---
Author Organization [facility] Address [address] [facility] [place] [address] Phone Care Team Providers Care Statistical Methods Teacher Name Role Phone Sunshine Rhodes JENNIFER Primary Care Provider + Reason for Visit * Reason Comments Medication Refill Encounter Details Date Type Department Care Team (Late st Contact Info) Description 02/27/2024 [facility]ill [facility] [address] [place] [address] Mariam Albarran MD [address] [place] [address] Medication Refill Social History Tobacco Use Types [...] encounter Miscellaneous Notes * Telephone Encounter - Rosie Fleming RN - 02/27/2024 3:00 PM CDT Medication failed the protocol, provider to review and approve the medication order if appropriate. Requested Prescriptions Pending Prescriptions Disp Refills celecoxib (CeleBREX) 200 MG Capsule [Pharmacy Med Name: Celecoxib 200 MG Oral Capsule] 180 Capsule 0 Sig: Take 1 capsule by mouth twice daily NSAIDs Protocol Failed - 02/27/2024 1:31 PM Failed - Normal serum creatinine in [...] Dept 01/19/24 Office Visit Sunshine Rhodes PAC [facility] 03/28/23 Office Visit Mariam Albarran MD [facility] Showing recent visits within past 365 days and meeting all other requirements Future Appointments Date Type Provider Dept 04/18/24 Appointment Sunshine Rhodes PAC [facility] Showing future appointments within next 90 days and meeting all other requirements Passed - No matching NSAID med order in past 45 days No matching medication orders between 01/13/2024 3:01 PM and 02/27/2024 3:01 PM documented in this encounter Plan of Treatment Upcoming Encounters Date Type Department Care Team (Late st Contact Info) Description 03/05/2025 4:15 PM CDT Office Visit [facility] Medical Group - Family Medicine [facility] [address] [place] [address] Sunshine Rhodes, JENNIFER [address] [place] [address] 03/07/2025 3:30 PM CDT 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
--- OUTSIDE RECORDS SUMMARY | 2025-02-21 16:31 | XMS_ITS | Encounter Summary ---
Author Organization [facility] Address [address] [facility] [place] [address] Phone Care Team Providers Care Health Services Director Name Role Phone Mariam Albarran MD Primary Care Provider [phone]- [phone] Sunshine Rhodes Primary Care Provider + Reason for Visit * Reason Comments Medication Refill Encounter Details Date Type Department Care Team (Late st Contact Info) Description 11/11/2023 Refill [facility] Medical Group - Family Medicine [facility] [address] [place] [address] Mariam Albarran MD [address] [place] [address] Medication Refill Social History Tobacco Use Types [...] Telephone Encounter - Patti Seaman RN - 11/11/2023 4:00 PM CST Medication failed the protocol, provider to review and approve the medication order if appropriate. Requested Prescriptions Pending Prescriptions Disp Refills cyclobenzaprine (FLEXERIL) 10 MG Tablet [Pharmacy Med Name: Cyclobenzaprine HCl 10 MG Oral Tablet] 100 Tablet 0 Sig: Take 1 tablet by mouth nightly Not Delegated - Muscle Relaxants Protocol Failed - 11/11/2023 1:14 PM Failed - This refill cannot be delegated Failed - Not delegated, patient not between 1 and 65 years of age Passed - Visit with relevant provider in past 12 months or upcoming 90 days Recent Visits Date Type Provider Dept 03/28/23 Office Visit Mariam Albarran MD [facility] Showing recent visits within past 365 days and meeting all other requirements Future Appointments No visits were found meeting these conditions. Showing future appointments within next 90 days and meeting all other requirements INE SET UP TECHNICIAN documented in this encounter Plan of Treatment Upcoming Encounters Date Type Department Care Team (Late st Contact Info) Description 03/05/2025 4:15 PM CDT Office Visit [facility] Family Medicine [facility] [address] [place] [address] Sunshine Rhodes PAC [address] [place] [address] 03/07/2025 3:30 PM CDT Office Visit [facility] - Neurology - [place] [address] [place] [address] Zelalem Chaudhari MD [address] [facility] [place] [address] 04/04/2025 2:30 PM CDT Office Visit [facility] Medicine [facility] [address] [place] [address] Sunshine Rhodes, JENNIFER [address] [place] [address] documented as of this encounter Visit Diagnoses Not on filedocumented in this encounter Additional Health Concerns Infection Onset Date Last Indicated Resolved Time 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
--- OUTSIDE RECORDS SUMMARY | 2025-02-21 16:31 | XMS_ITS | Encounter Summary ---
Author Organization [facility] Address [address] [facility] [facility] [address] [facility] [place] [address] Phone Care Team Providers Care Sheep Herder Name Role Phone Mariam Albarran MD Primary Care Provider +1- [phone] Sunshine Rhodes Primary Care Provider + Reason for Visit * Reason Comments Medication Refill Encounter Details Date Type Department Care Team (Late st Contact Info) Description 01/25/2021 Refill [facility] Medical Group - Family Medicine [facility] [address] [place] [address] Sunshine Rhodes PAC [address] [place] [address] Medication Refill Social History Tobacco Use Types [...] on file documented as of this encounter Plan of Treatment Upcoming Encounters Date Type Department Care Team (Late st Contact Info) Description 03/05/2025 4:15 PM CDT Office Visit [facility] Family Medicine [facility] [address] [place] [place] [place] [address] Sunshine Rhodes, PAC [address] [place] [address] 03/07/2025 3:30 PM CDT Office Visit 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
--- OUTSIDE RECORDS SUMMARY | 2025-02-21 16:31 | XMS_ITS | Encounter Summary ---
Author Organization [facility] Address [address] [facility] [place] [address] Phone Care Team Providers Care Back Sewer Name Role Phone Mariam Albarran MD Primary Care Provider [phone] Sunshine Rhodes Primary Care Provider + Reason for Visit * Reason Comments Medication Refill Encounter Details Date Type Department Care Team (Late st Contact Info) Description 08/29/2023 Refill [facility] Medical Group - Family Medicine [facility] [address] [place] [address] Mariam Albarran MD [address] [place] [address] Medication Refill Social History Tobacco Use Types [...] Telephone Encounter - Patti Seaman RN - 08/30/2023 9:42 AM CDT Medication failed the protocol, provider to review and approve the medication order if appropriate. Requested Prescriptions Pending Prescriptions Disp Refills cyclobenzaprine (FLEXERIL) 10 MG Tablet [Pharmacy Med Name: Cyclobenzaprine HCl 10 MG Oral Tablet] 100 Tablet 0 Sig: Take 1 Tablet by mouth nightly. Not Delegated - Muscle Relaxants Protocol Failed - 08/29/2023 10:59 AM Failed - This refill cannot be delegated Failed - Not delegated, patient not between 1 and 65 years of age Passed - Visit with relevant provider in past 12 months or upcoming 90 days Recent Visits Date Type Provider Dept 03/28/23 Office Visit Mariam Albarran MD [facility] 08/30/22 Office Visit Sunshine Rhodes PAC [facility] Showing recent visits within past 365 days and meeting all other requirements Future Appointments No visits were found meeting these conditions. Showing future appointments within next 90 days and meeting all other requirements documented in this encounter Plan of Treatment Upcoming Encounters Date Type Department Care Team (Late st Contact Info) Description 03/05/2025 4:15 PM CDT Office Visit [facility] Medical [facility] - Family Medicine [facility] [address] [place] [address] Sunshine Rhodes PAC [address] [place] [address] 03/07/2025 3:30 PM CDT Office [facility] - Neurology [facility] [address] [place] [phone] Zelalem Chaudhari MD [address] [place] [address] 04/04/2025 2:30 PM CDT Office Visit [facility] - Family [facility] [address] [place] [address] Sunshine Rhodes PAC [address] [place] [address] documented as of this encounter Visit Diagnoses Not on filedocumented in this encounter Additional Health Concerns Infection Onset Date Last Indicated Resolved Time MRSA 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
--- OUTSIDE RECORDS SUMMARY | 2025-02-21 16:31 | XMS_ITS | Encounter Summary ---
Author Organization [facility] Address [address] [facility] [place] [address] Phone Care Team Providers Care Facility Environmental Technician Name Role Phone Sunshine Rhodes JENNIFER Primary Care Provider + Reason for Visit * Reason Comments Medication Refill Encounter Details Date Type Department Care Team (Late st Contact Info) Description 04/03/2024 [facility]ill [facility] [address] [place] [address] Mariam Albarran MD [address] [place] [address] Medication Refill Social History Tobacco Use Types [...] Telephone Encounter - Patti Seaman RN - 04/03/2024 5:09 PM CDT Medication failed the protocol, provider to review and approve the medication order if appropriate. Requested Prescriptions Pending Prescriptions Disp Refills cyclobenzaprine (FLEXERIL) 10 MG Tablet [Pharmacy Med Name: Cyclobenzaprine HCl 10 MG Oral Tablet] 100 Tablet 0 Sig: Take 1 tablet by mouth nightly Not Delegated - Muscle Relaxants Protocol Failed - 04/03/2024 4:52 PM Failed - This refill cannot be delegated Failed - Not delegated, patient not between 1 and 65 years of age Passed - Visit with relevant provider in past 12 months or upcoming 90 days Recent Visits Date Type Provider Dept 01/19/24 Office Visit Sunshine Rhodes PAC [facility] Showing recent visits within past [...] Description 03/05/2025 4:15 PM CDT Office Visit [facility] Family Medicine [facility] [address] [place] [address] Sunshine Rhodes PAC [address] [place] [address] 03/07/2025 3:30 PM CDT Office Visit [facility] - Neurology [facility] [address] [place] [address] Zelalem Chaudhari MD [address] [place] [address] 04/04/2025 2:30 PM CDT Office Visit [facility] [address] [place] [address] Sunshine Rhodes, JENNIFER [address] [place] [address] documented as of this encounter Visit Diagnoses Not on filedocumented in this encounter Additional Health Concerns Infection Onset Date Last Indicated Resolved Time MRSA 12/04/2018 12/04/2018 Assessment Noted Time PHQ-9 Depression Total Score: 0 01/19/20 2:18 PM MOBILE SALES CONSULTANT documented as of this encounter Care Teams Facility Environmental Technician Relationship Specialty Start Date End Date Sunshine Rhodes PAC [address] [place] [address] PCP - General Physician Pharmacy Resource Tech 01/19/24 documented as of this encounter
--- OUTSIDE RECORDS SUMMARY | 2025-02-21 16:31 | XMS_ITS | Encounter Summary ---
Author Organization [facility] Address [address] [facility] [place] [address] Phone Care Team Providers Care Element Winding Machine Tender Name Role Phone Sunshine Rhodes JENNIFER Primary Care Provider + Reason for Visit * Reason Comments Medication Refill Encounter Details Date Type Department Care Team (Late st Contact Info) Description 04/19/2024 Refill [facility] [address] [place] [address] Mariam Albarran MD [address] [place] [address] Medication Refill Social History Tobacco Use Types [...] encounter Miscellaneous Notes * Telephone Encounter - Bailey Ramires RN - 04/19/2024 4:16 PM CDT Medication failed the protocol, provider to review and approve the medication order if appropriate. Requested Prescriptions Pending Prescriptions Disp Refills amitriptyline (ELAVIL) 25 MG Tablet [Pharmacy Med Name: Amitriptyline HCl 25 MG Oral Tablet] 90 Tablet 0 Sig: Take 1 tablet by mouth nightly Not Delegated - Tricyclic Agents Protocol Failed - 04/19/2024 4:11 PM Failed - This refill cannot be delegated Passed - Visit with relevant provider in past 12 months or upcoming 90 days Recent Visits Date Type Provider Dept 01/19/24 Office Visit Sunshine Rhodes PAC [facility] Showing recent visits within past 365 days and meeting all other requirements Future Appointments No visits were found meeting these conditions. Showing future appointments within next 90 days and meeting all other requirements documented in this encounter Plan of Treatment Upcoming Encounters Date Type Department Care Team (Late st Contact Info) Description 03/05/2025 4:15 PM CDT Office Visit [facility] [address] [place] [address] Sunshine Rhodes PAC [address] [place] [address] 03/07/2025 3:30 PM CDT Office Visit [facility] - Neurology [facility] [address] [facility] [place] [address] Zelalem Chaudhari MD [address] [facility] [place] [address] 04/04/2025 2:30 PM CDT Office Visit [facility] [address] [place] [address] Sunshine Rhodes PAC [address] [place] [address] documented as of this encounter Visit Diagnoses Diagnosis Insomnia, unspecified type documented in this encounter Additional Health Concerns Infection Onset Date Last Indicated Resolved Time 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
--- OUTSIDE RECORDS SUMMARY | 2025-02-21 16:31 | XMS_ITS | Encounter Summary ---
Author Organization [facility] Address [address] [facility] [place] [address] Phone Care Team Providers Care Route Clerk Name Role Phone Mariam Albarran MD Primary Care Provider [phone]- [phone] Sunshine Rhodes Primary Care Provider + Reason for Visit * Reason Comments Medication Refill Encounter Details Date Type Department Care Team (Late st Contact Info) Description 12/27/2023 Refill [facility] Medical Group - Family Medicine [facility] [address] [place] [address] Mariam Albarran MD [address] [place] [address] Medication Refill Social History Tobacco Use Types [...] Telephone Encounter - Patti Seaman RN - 12/27/2023 2:33 PM CST Upcoming with Sunshine 01/19/24 Medication failed the protocol, provider to review and approve the medication order if appropriate. Requested Prescriptions Pending Prescriptions Disp Refills celecoxib (CeleBREX) 200 MG Capsule [Pharmacy Med Name: Celecoxib 200 MG Oral Capsule] 60 Capsule 1 Sig: Take 1 capsule by mouth twice daily NSAIDs Protocol Failed - 12/27/2023 12:45 PM Failed - Normal serum creatinine in [...] Dept 03/28/23 Office Visit Mariam Albarran MD [facility] Showing recent visits within past 365 days and meeting all other requirements Future Appointments Date Type Provider Dept 01/19/24 Appointment Sunshine Rhodes [facility] Showing future appointments within next 90 days and meeting all other requirements Passed - No matching NSAID med order in past 45 days No matching medication orders between 11/12/2023 2:33 PM and 12/27/2023 2:33 PM H BUILDER documented in this encounter Plan of Treatment Upcoming Encounters Date Type Department Care Team (Late st Contact Info) Description 03/05/2025 4:15 PM CDT Office Visit [facility] Medical Group - Family Medicine - [place] [address] [place] [phone] Sunshine Rhodse, JENNIFER [address] [place] [address] 03/07/2025 3:30 PM CDT Office Visit [facility] - Neurology [facility] [address] [place] [address] Zelalem Chaudhari MD [address] [place] [address] 04/04/2025 2:30 PM CDT Office Visit [facility] - Family Medicine [facility] [address] [place] [address] Sunshine Rhodes PAC [address] [place] [address] documented as of this encounter Visit Diagnoses Not on filedocumented in this encounter Additional Health Concerns Infection Onset Date Last Indicated Resolved Time 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
--- OUTSIDE RECORDS SUMMARY | 2025-02-21 16:31 | XMS_ITS | Encounter Summary ---
Author Organization [facility] Address [address] [facility] [place] [address] Phone Care Team Providers Care Field Mechanical Meter Tester Name Role Phone Mariam Albarran MD Primary Care Provider [phone]- [phone] Sunshine Rhodes Primary Care Provider + Reason for Visit * Reason Comments Medication Refill Encounter Details Date Type Department Care Team (Late st Contact Info) Description 10/24/2020 Refill [facility] Medical Group - Family [facility] [address] [place] [address] Sunshine Rhodes PAC [address] [place] [address] Medication Refill Social History Tobacco Use Types [...] Exposure Response Date Recorded In the last month, have you been in contact with someone who was confirmed or suspected to have Coronavirus / COVID-19? No / Unsure 10/12/2020 3:55 PM PARADI TENDER documented as of this encounter Miscellaneous Notes * Telephone Encounter - Brandee Nathan RN - 10/24/2020 11:53 AM CST Sent to PCP DI TENDER * Telephone Encounter - Brandee Nathan RN - 10/24/2020 11:52 AM CST Medication failed the protocol, provider to review and approve the medication order if appropriate. Last OV F/U None, Last Rx Brandee RICHTER Requested Prescriptions Pending Prescriptions Disp Refills cyclobenzaprine (FLEXERIL) 10 MG Tablet [Pharmacy Med Name: CYCLOBENZAPRINE 10 MG TABLET] 90 Tab 0 Sig: TAKE 1 TABLET BY MOUTH EVERY NIGHT Not Delegated - Analgesics: Muscle Relaxants Failed - 10/24/2020 10:46 AM Failed - This refill cannot be delegated Passed - Valid encounter within last 6 months Past Office Visits Recent Outpatient Visits 2 months ago Elevated glucose [facility] - Sunshine Louis PAC 1 year ago Screen for colon cancer [facility] - Mariam Marcus MD 1 year ago Tachycardia [facility] - Mariam Marcus MD 1 year ago Pneumonitis [facility] Sunshine Louis PAC 1 year ago Chronic pain of right knee [facility] Sunshine Henson PAC Upcoming Appointments SHEET METAL SUPERVISOR - Recent and Past Visits Recent Visits Date Type Provider Dept 07/28/20 Office Visit Sunshine Rhodes PAC [facility] Showing recent visits within past 460 days with a meds authorizing provider and meeting all other requirements Future Appointments No visits were found meeting these conditions. Showing future appointments within next 90 days with a meds authorizing provider and meeting all other requirements DI TENDER documented in this encounter Plan of Treatment Upcoming Encounters Date Type Department Care Team (Late st Contact Info) Description 03/05/2025 4:15 PM CDT Office Visit [facility] Family Medicine [facility] [address]2 [place] [address] Sunshine Rhodes PAC [address] [place] [address] 03/07/2025 3:30 PM CDT Office Visit [facility] Neurology [facility] [address] [facility] [place] [address] Zelalem Chaudhari MD [address] [place] [address] 04/04/2025 2:30 PM CDT Office Visit [facility] [address] [place] [address] Sunshine Rhodes PAC [address] [place] [address] documented as of this encounter Visit Diagnoses Not on filedocumented in this encounter Additional Health Concerns Infection Onset Date Last Indicated Resolved Time 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
--- OUTSIDE RECORDS SUMMARY | 2025-02-21 16:31 | XMS_ITS | Encounter Summary ---
Author Organization [facility] Address [address] [facility] [place] [address] Care Team Providers Care Technical Professional Name Role Phone Unavailable Primary Care Provider Unavailabl e Encounter Details Date Type Department Care Team (Late st Contact Info) Description 10/02/2024 Lab Requisition [facility] - DermPath Lab [address] [place] [address] Iker Lopez MD [facility] DERMATOLOGY [address] [place] [address] Neoplasm of uncertain behavior of skin Social History Tobacco Use Types Packs/Day Years Used Date Smoking Tobacco: Never Assessed Sex and Gender Information Value Date Recorded Sex Assigned at Not on file Gender Identity Not on file Sexual Orientation Not on file documented as of this encounter Plan of Treatment Not on file documented as of this encounter Procedures Procedure Name Priority Date/Time Associated Diagnosis Comments DERMATOPATHOLOGY Routine 10/02/2024 12:0 0 AM WELL LOGGING OPERATOR MUD ANALYSIS Neoplasm of uncertain behavior of skin documented in this encounter Results * DERMATOPATHOLOGY (10/02/2024 12:00 AM WELL LOGGING OPERATOR MUD ANALYSIS) Case Report Dermatopathology Report Case: [id number] Authorizing Provider: Iker Lopez MD Collected: 10/02/2024 12:00 AM Ordering Location: [facility] - Received: 10/03/2024 12:34 PM DermPath Lab Pathologist: Whitney Purcell MD Specimen: Skin, right proximal calf 5:32 PM WELL LOGGING OPERATOR MUD ANALYSIS DERMATOPATHOLOGY LABORATORY Final Diagnosis Specimen A. SKIN, right proximal calf: DERMAL SCAR RESIDUAL MELANOCYTIC PROLIFERATION NOT IDENTIFIED (L90.5) 4 5:32 PM [facility] DERMATOPATHOLOGY LABORATORY Clinical History Atypical Melanocytic Proliferation Please check margins 4 5:32 PM [facility] DERMATOPATHOLOGY LABORATORY Gross Description Specimen A: Received is one formalin filled container labeled with the patient's name and designated right proximal calf. The specimen consists of a non-oriented ellipse of skin measuring [id number] mm. The epidermal surface is unremarkable. The margin is inked green. The 12 o'clock and 6 o'clock tips are submitted in cassette 1. The remainder of the ellipse is serially sectioned and submitted in cassette 2-5. Jar 0. 4 5:32 PM [facility] DERMATOPATHOLOGY LABORATORY Microscopic Description Specimen A. SKIN, right proximal calf: There are fibroblasts and collagen bundles oriented parallel to the skin surface. There are elongated blood vessels, some of which are oriented perpendicular to the skin surface. No residual melanocytic proliferation is identified. 4 5:32 PM [facility] DERMATOPATHOLOGY LABORATORY Disclaimer An external and internal positive and negative controls are appropriate for the histochemical, immunohistochemical and immunofluorescence stain(s) in this case (if any), except where stated explicitly. The performance characteristics of the stain(s) cited in this report were developed and its performance characteristic determined by the Dermatopathology Laboratory at [facility], directed by Dr. Celeste Matos. These tests need not be, and therefore are not, approved by the [place] Food and Drug Administration. The tests are used for clinical purposes. Billing Codes Specimen Charges Stain Charges 65474 1 4 5:32 PM [facility] DERMATOPATHOLOGY LABORATORY Embedded Images 4 5:32 PM [facility] DERMATOPATHOLOGY LABORATORY Pathology/Cytolog y TISSUE SPECIMEN FROM SKIN / Unknown 10/02/2024 10/03/2024 12:34 PM [facility] Iker Lopez MD LAB - PATHOLOGY/CYTO LOGY ORDERABLES DERMATOPATHOLOGY LABORATORY [facility] - Department of Dermatology [address] [place], [place] [id number] [place] [address] documented in this encounter Visit Diagnoses Diagnosis Neoplasm of uncertain behavior of skin documented in this encounter
--- OUTSIDE RECORDS SUMMARY | 2025-02-21 16:33 | XMS_ITS | Clinical Summary ---
Author Organization [facility] Address [address] [place] [address] Care Team Providers Care Oil Well Service Operator Helper Name Role Phone Unavailable Primary Care Provider Unavailabl e Social History Tobacco Use Types Packs/Day Years Used Date Smoking Tobacco: Never Assessed Comments Unknown Sex and Gender Information Value Date Recorded Sex Assigned at Not on file Legal Sex Female 4:34 PM CDT Gender Identity Not on file Sexual Orientation Not on file Plan of Treatment Health Maintenance Due Date Last Done Comments Colorectal Cancer Screening Colonoscopy (10 Years) 1957 Hepatitis C 1975 DTaP, Tdap and Td Vaccines ( 1 - Tdap) 1976 Mammogram Screening 1997 Zoster Vaccines (1 of 2) 2007 Dexa Scan (General) 2022 Pneumococcal Vaccine: 65+ Ye ars (1 of 1 - PCV) 2022 COVID-19 Vaccine (2023-2 5 season) 2024 Influenza Adult (#1) 2024 RSV Immunization or 60+ Years (1 - 1-dose 75+ series) 2032 Meningococcal B Vaccine Aged Out No l onger eligible based on patient's age to complete this topic Meningococcal Vaccine Aged Out No ihsan pearl eligible based on patient's age to complete this topic RSV Immunizations Under 20 Months Aged Out No longer eligible based on patient's age to complete this topic
[2025-02-21 16:40] LABS: EDUAAPPEAR Clear; EDUABILI 1+ (Negative); EDUABLOOD Negative (Negative); EDUACOLOR1 Yellow; EDUAGLUCOSE Negative (Negative); EDUAKETONE 2+ (Negative); EDUALEUKO Trace (Negative); EDUANITRATE Negative (Negative); EDUAPH 5.5; EDUAPROTEIN Negative (Negative)
== END 2025-02-21 17:10 | disposition home or self-care (01) ==
PROVIDERS: Emergency Provider Registered Nurse; PCP Physician Assistant
DX: N39.0 Urinary tract infection, site not specified (principal); M06.9 Rheumatoid arthritis, unspecified; M19.90 Unspecified osteoarthritis, unspecified site; M79.7 Fibromyalgia
CPT/HCPCS: 81003; 87086; 99213; G0463